=== PATIENT | female | born 1955 | race Caucasian/White ===

== ENCOUNTER 2019-05-29 20:00 | Outpatient (CLI) | payer MEDICARE, BC, SELFPAY | END 2019-05-29 20:01 | disposition home or self-care (01) | LOC: SLEEP 05-30 11:17 | PROVIDERS: Visit Provider Internal Medicine | DX: G47.33 Obstructive sleep apnea (adult) (pediatric) (principal) | CPT/HCPCS: 95810; 95811 ==

== ENCOUNTER 2020-02-21 13:09 | Emergency (ER) | payer MEDICARE, BC, SELFPAY ==
[2020-02-21 13:12] VITALS: BP 188/96; PULSE 85; RESP 20; TEMP 36.4; O2SAT 95; BMI 30.4
[2020-02-21 13:20] VITALS: BP 168/95; PULSE 79; RESP 20; O2SAT 90
--- NOTE | 2020-02-21 13:20 | CT_ITS ---
WS: [id number] CT scan of the head, 02/21/2020 Clinical Data: Altered mental status Comparison: None. DLP: 884.[address] scans at [facility] use at least one of these dose optimization techniques: automat ed exposure control; mA and/or kV adjustment per patient size (includes targeted exams where dose is matched to clinical indication); or iterative reconstruction. Findings: The ventricular system is normal without shift. No recent infarct or hemorrhage is seen. There are no abnormal intracerebral masses. The cerebellum and brainstem are not remarkable. Bony windows of the skull and skull base show no fractures or erosions. The internal auditory canals, sella turcica, intraorbital contents, and paranasal sinuses are unremarkable. The mastoid air cells are not remarkable. CT/CT head wo con* [id number] Impression: Negative CT scan of the head
--- NOTE | 2020-02-21 13:20 | XR_ITS ---
WS: [id number] Portable AP upright chest, 02/21/2020 Clinical Data: Altered mental status Comparison: None. Findings: No nodules, masses or effusions are seen. The heart is normal. The pulmonary vascularity is not increased. No pneumonia or pneumothorax is seen. XR/XR chest 1V portable [id number] Impression: Negative chest.
--- NOTE | 2020-02-21 13:22 | ECG_ITS ---
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 Measurements Intervals [place] Rate: 80 P: 52 MS: 140 QRS: -12 QRSD: 97 T: 26 QT: 368 QTc: 427 Interpretive Statements SINUS RHYTHM No previous ECG available for comparison Electronically Signed On 02-21-2020 18:38:46 CDT by Nolan Conklin M.D. [id number]
--- NOTE | 2020-02-21 13:24 | W.ED.GENADLT ---
HPI - General Adult General: Chief complaint: General Medical Stated complaint: has ms/said something ms going on today Time Seen by Provider: 02/21/20 13:14 Source: patient and family Mode of arrival: wheelchair Limitations: altered mental status History of Present Illness: HPI narrative: Linda is a very nice 64-year-old female who comes in complaining of confusion and difficulty with speech. comes in with her and states that she has history of multiple sclerosis and he and she feels as though she is having a flareup of this. Patient has had similar symptoms to this in the past. The patient was very active yesterday and they feel may have overdone it and believes that may be what has precipitated this. Patient's not had any other ill type symptoms. Associated symptoms: Reports confusion and malaise; Deny chest pain, diaphoresis, dyspnea, headache(s), nausea, rash, palpitations, syncope or vomiting Review of Systems Const: Reports: fatigue and malaise; Denies: fever(s), chills, body aches or diaphoresis Eyes: Denies: change in vision, blurry vision, photophobia, eye discomfort, eye discharge, eye redness or yellow eyes ENMT: Denies: throat pain, odynophagia, hoarseness, swelling of lips/tongue, ear or mastoid pain, ear discharge, change in hearing or nasal discharge Card: Denies: chest pain, palpitations, irregular heart rhythm, edema, lightheadedness, syncope, pre-syncope, dyspnea on exertion or orthopnea Resp: Denies: dyspnea, productive cough, non-productive cough, wheezing, hemoptysis or chest congestion GI: Denies: abdominal pain, nausea, vomiting, hematemesis, coffee ground emesis, heartburn, diarrhea, constipation, GI cramping, hematochezia or melena : Denies: flank pain, dysuria, urinary frequency, urinary urgency or hematuria Musc: Denies: neck pain, back pain, extremity pain, extremity swelling, joint pain, joint swelling, joint redness, joint warmth or joint stiffness Skin/Breast: Denies: rash, pruritus, erythema, skin pain or skin tenderness Neuro: Reports: confusion and behavioral changes; Denies: headache(s), numbness in extremities, weakness in extremities, sensory changes, lack of coordination, difficulty walking, dizziness, vertigo, Slurred speech present or seizure-like activity Mayank/Lymph: Denies: easy bruising, easy bleeding, petechiae, purpura or enlarged lymph nodes All/Imm: Denies: urticaria, throat swelling, tongue swelling, facial swelling or acute wheezing PFSH ED PFSH: Medical History (Updated 02/21/20 @ 16:06 by Robbie Galloway MD) Multiple sclerosis Surgical History (Updated 02/21/20 @ 16:02 by Robbie Galloway MD) H/O: hysterectomy History of bladder surgery Previous back surgery Physical Exam Const: COMMON NORMALS: no acute distress, no limitations and alert GENERAL APPEARANCE: cooperative and lethargic ORIENTATION/CONSCIOUSNESS: Yes oriented to person, Yes oriented to place and Yes lethargic HENMT: COMMON NORMALS: normocephalic, atraumatic, external ears normal, EAC's normal and Normal external nose present HEAD & SCALP: normal to inspection, normocephalic and atraumatic FACE & SINUS: normal facial exam and face symmetric NOSE: Normal external nose present and Normal nares present EXTERNAL EAR: Yes external ears normal EXTERNAL AUDITORY CANAL: EAC's normal MOUTH: Normal oral and palatal mucosa present, lip normal and tongue normal Eye: COMMON NORMALS: Equal, round and reactive pupils present and conjunctivae normal GENERAL EYE: appearance normal, both eyes and all related structures ALIGNMENT: Yes alignment normal PERIORBITAL: periorbital findings normal EYELID: eyelids normal CONJUNCTIVA: Yes conjunctivae normal SCLERA: sclerae normal PUPIL: Yes Equal, round and reactive pupils present Neck/C-Spine: COMMON NORMALS: full ROM, no lymphadenopathy, supple, no meningeal signs and no JVD GENERAL: Yes normal visual inspection and Yes trachea midline Chest: COMMONS NORMALS: normal inspection of the chest and normal palpation of entire chest wall Resp: COMMON NORMALS: normal respiratory effort, No retractions, No use of accessory muscles and clear to auscultation bilaterally EFFORT & INSPECTION: Yes able to speak in complete sentences and Yes symmetric chest movement AUSCULTATION: clear to auscultation bilaterally, no crackles, no rales, no rhonchi and no wheezes Cardio: COMMON NORMALS: no JVD, regular rate, regular rhythm, S1 normal heart sound present and S2 normal heart sound present RATE: regular rate RHYTHM: regular rhythm HEART SOUNDS: S1 normal heart sound present, S2 normal heart sound present, no click, no gallops, no murmurs and no rubs GI: COMMON NORMALS: Soft to palpation and No hepatosplenomegaly present PALPATION: Yes Soft to palpation, No Tenderness to palpation present (GI), No Guarding due to palpation present (GI), No Rigid due to palpation, Yes No hepatosplenomegaly present, No Hernia present, No Palpable mass present and No Pulsatile mass present : COMMON NORMALS: Yes no CVA tenderness BLADDER/KIDNEY EXAM: Yes no CVA tenderness EXTERNAL FEMALE EXAM: No Hernia present Back/Pelvis: COMMON NORMALS: no CVA tenderness, thoracic and lumbar spine normal to inspection, no thoracic nor lumbar tenderness and thoraco-lumbar ROM normal Extremity: COMMON NORMALS: normal to inspection, full ROM, capillary refill normal, no joint enlargement, no clubbing, cyanosis or edema and no calf tenderness Neuro: COMMON NORMALS: CN's II-XII intact bilaterally, moves all extremities, no focal motor deficits and no sensory deficits noted SENSORIUM/ORIENTATION: Yes alert, Yes oriented to person, Yes oriented to place and Yes lethargic MENINGEAL SIGNS: Yes no meningeal signs SPEECH: expressive aphasia Psych: COMMON NORMALS: mental status grossly normal, Normal thought process present, cooperative, normal affect, speech normal and activity/motor behavior normal SPEECH: Yes normal speech THOUGHT PROCESS: Normal thought process present Skin: COMMON NORMALS: no rashes or lesions noted, turgor normal, no jaundice, no petechiae and no mottling GENERAL SKIN EXAM: no rashes or lesions noted and turgor normal Course Vital Signs: Vital signs: Vital Signs Temperature 97.5 F L 02/21/20 13:12 Pulse Rate 63 02/21/20 17:53 Respiratory Rate 17 02/21/20 17:53 Blood Pressure 152/105 02/21/20 17:53 Pulse Oximetry 95 02/21/20 17:53 MDM - General Adult MDM Narrative: Medical decision making narrative: 162 -I have discussed the case with the patient's primary doctor Dr. Padmini Gipson and her neurologist out [facility] Dr. Viveros. Her neurologist feels as though she can be discharged home with a 6-day prednisone taper. I reviewed this with the patient and she agrees that she feels as though she can go home as she is much better here with just IV hydration. Dr. Gipson agrees with this plan and will see the patient on Tuesday for recheck. The patient understands she can return here at any time should her symptoms change or worsen. I was able to speak with the [facility] on-call neurologist Dr. Up and he agreed with this plan and felt this was appropriate. Please see Dr. Galloway's note as he did consult on the patient as initially we thought she would be admitted but ultimately she has decided that she would like to go home. Lab Data: Attestation: I reviewed the patient's lab results. Labs: Lab Results 02/21/20 02/21/20 02/21/20 Range/Units 13:30 13:50 13:50 WBC (4.0-10.0) 10^3/ uL RBC (4.1-5.3) 10^6/u L Hgb (11.5-15.3) g/dL Hct (37.0-47.0) % MCV (81-99) fL MCH (28.0-34.0) pg MCHC (30.0-36.0) g/dL RDW (12.1-15.1) % Plt Count (130-400) 10^3/c mm MPV (7.4-10.4) fL Neut % (Auto) % Lymph % (Auto) % [place] % (Auto) % Eos % (Auto) % Baso % (Auto) % Neut # (Auto) (1.8-7.7) 10^3/u L Lymph # (Auto) (0.8-4.8) 10^3/u L [place] # (Auto) (0.2-0.9) 10^3/u L Eos # (Auto) (0.0-0.8) 10^3/u L Baso # (Auto) (0.0-0.1) 10^3/u L Nucleated RBC % (a uto) % Nucleated RBCs # /100WBC Specimen Type Arterial Sample Site Brachial, left ABG pH 7.42 (7.35-7.45) ABG pCO2 38.2 (35-45) mmHg ABG pO2 78.9 L (80.0-100.0) mmH g ABG HCO3 24.6 (22-26) mmol/L ABG Base Excess 0.2 (-2.0-2.0) mmol/ L Dwayne Test Pos Hematocrit 43.1 (37-47) % O2 Delivery Device Room air FiO2 21.0 % Perinatology Physician ID Cak Sodium (136-145) mmol/L Potassium (3.5-5.1) mmol/L Chloride (98-107) mmol/L Carbon Dioxide (22-29) mmol/L Anion Gap (5-19) BUN (8-23) mg/dL Creatinine (0.5-0.9) mg/dL GFR Calculation (90-130) mL/min Glucose (65-115) mg/dL Calculated Osmolal ity (285-295) mOsm/k g Lactic Acid (0.5-2.2) mmol/L Calcium (8.5-10.5) mg/dL Magnesium (1.7-2.3) mg/dL Total Bilirubin (0.15-1.2) mg/dL AST (0-32) U/L ALT (0-33) U/L Alkaline Phosphata se (35-105) IU/L Creatine Kinase (26-192) U/L Troponin T Baselin e (0-10) ng/L Total Protein (6.6-8.7) g/dL Albumin (3.5-5.2) g/dL Globulin (1.3-4.6) g/dL Urine Color (Yellow) Urine Appearance (CLEAR) Urine pH (5-7) Ur Specific Gravit y (1.005-1.030) Urine Protein (Negative) Urine Glucose (UA) (Normal) Urine Ketones (Negative) Urine Blood (Negative) Urine Nitrate (Negative) Urine Bilirubin (Negative) Urine Urobilinogen (Negative) mg/dL Ur Leukocyte Ambar ase (Negative) Urine Opiates Scre en (Negative) ng/mL Ur Barbiturates Sc reen (Negative) ng/mL Ur Phencyclidine S crn (Negative) ng/mL Ur Amphetamines Sc reen (Negative) ng/mL U Benzodiazepines Scrn (Negative) ng/mL Urine Cocaine Scre en (Negative) ng/mL U Marijuana (THC) Screen (Negative) ng/mL Ethyl Alcohol (0-10) mg/dL Influenza Type A A g Negative (Negative) Influenza Type B A g Negative (Negative) SARS-CoV-2 Ag (Rap id) Negative (Negative) 10/15/20 10/15/20 10/15/20 Range/Units 13:51 13:51 13:51 WBC 5.8 (4.0-10.0) 10^3/ uL RBC 4.57 (4.1-5.3) 10^6/u L Hgb 14.3 (11.5-15.3) g/dL Hct 44.4 (37.0-47.0) % MCV 97.2 (81-99) fL MCH 31.3 (28.0-34.0) pg MCHC 32.2 (30.0-36.0) g/dL RDW 12.4 (12.1-15.1) % Plt Count 249 (130-400) 10^3/c mm MPV 12.3 H (7.4-10.4) fL Neut % (Auto) 70.8 % Lymph % (Auto) 20.7 % [place] % (Auto) 7.2 % Eos % (Auto) 0.3 % Baso % (Auto) 0.5 % Neut # (Auto) 4.11 (1.8-7.7) 10^3/u L Lymph # (Auto) 1.2 (0.8-4.8) 10^3/u L [place] # (Auto) 0.4 (0.2-0.9) 10^3/u L Eos # (Auto) 0.0 (0.0-0.8) 10^3/u L Baso # (Auto) 0.0 (0.0-0.1) 10^3/u L Nucleated RBC % (a uto) 0 % Nucleated RBCs # 0.0 /100WBC Specimen Type Sample Site ABG pH (7.35-7.45) ABG pCO2 (35-45) mmHg ABG pO2 (80.0-100.0) mmH g ABG HCO3 (22-26) mmol/L ABG Base Excess (-2.0-2.0) mmol/ L Dwayne Test Hematocrit (37-47) % O2 Delivery Device FiO2 % Perinatology Physician ID Sodium 137 (136-145) mmol/L Potassium 3.6 (3.5-5.1) mmol/L Chloride 101 (98-107) mmol/L Carbon Dioxide 23 (22-29) mmol/L Anion Gap 16.6 (5-19) BUN 19 (8-23) mg/dL Creatinine 0.6 (0.5-0.9) mg/dL GFR Calculation 100.6 (90-130) mL/min Glucose 109 (65-115) mg/dL Calculated Osmolal ity 287 (285-295) mOsm/k g Lactic Acid 2.0 (0.5-2.2) mmol/L Calcium 9.8 (8.5-10.5) mg/dL Magnesium 2.2 (1.7-2.3) mg/dL Total Bilirubin 0.2 (0.15-1.2) mg/dL AST 27 (0-32) U/L ALT 32 (0-33) U/L Alkaline Phosphata se 102 (35-105) IU/L Creatine Kinase 687 H* (26-192) U/L Troponin T Baselin e (0-10) ng/L Total Protein 6.5 L (6.6-8.7) g/dL Albumin 4.5 (3.5-5.2) g/dL Globulin 2.0 (1.3-4.6) g/dL Urine Color (Yellow) Urine Appearance (CLEAR) Urine pH (5-7) Ur Specific Gravit y (1.005-1.030) Urine Protein (Negative) Urine Glucose (UA) (Normal) Urine Ketones (Negative) Urine Blood (Negative) Urine Nitrate (Negative) Urine Bilirubin (Negative) Urine Urobilinogen (Negative) mg/dL Ur Leukocyte Ambar ase (Negative) Urine Opiates Scre en (Negative) ng/mL Ur Barbiturates Sc reen (Negative) ng/mL Ur Phencyclidine S crn (Negative) ng/mL Ur Amphetamines Sc reen (Negative) ng/mL U Benzodiazepines Scrn (Negative) ng/mL Urine Cocaine Scre en (Negative) ng/mL U Marijuana (THC) Screen (Negative) ng/mL Ethyl Alcohol < 10 (0-10) mg/dL Influenza Type A A g (Negative) Influenza Type B A g (Negative) SARS-CoV-2 Ag (Rap id) (Negative) 02/21/20 02/21/20 02/21/20 Range/Units 13:51 14:25 14:25 WBC (4.0-10.0) 10^3/ uL RBC (4.1-5.3) 10^6/u L Hgb (11.5-15.3) g/dL Hct (37.0-47.0) % MCV (81-99) fL MCH (28.0-34.0) pg MCHC (30.0-36.0) g/dL RDW (12.1-15.1) % Plt Count (130-400) 10^3/c mm MPV (7.4-10.4) fL Neut % (Auto) % Lymph % (Auto) % [place] % (Auto) % Eos % (Auto) % Baso % (Auto) % Neut # (Auto) (1.8-7.7) 10^3/u L Lymph # (Auto) (0.8-4.8) 10^3/u L [place] # (Auto) (0.2-0.9) 10^3/u L Eos # (Auto) (0.0-0.8) 10^3/u L Baso # (Auto) (0.0-0.1) 10^3/u L Nucleated RBC % (a uto) % Nucleated RBCs # /100WBC Specimen Type Sample Site ABG pH (7.35-7.45) ABG pCO2 (35-45) mmHg ABG pO2 (80.0-100.0) mmH g ABG HCO3 (22-26) mmol/L ABG Base Excess (-2.0-2.0) mmol/ L Dwayne Test Hematocrit (37-47) % O2 Delivery Device FiO2 % Perinatology Physician ID Sodium (136-145) mmol/L Potassium (3.5-5.1) mmol/L Chloride (98-107) mmol/L Carbon Dioxide (22-29) mmol/L Anion Gap (5-19) BUN (8-23) mg/dL Creatinine (0.5-0.9) mg/dL GFR Calculation (90-130) mL/min Glucose (65-115) mg/dL Calculated Osmolal ity (285-295) mOsm/k g Lactic Acid (0.5-2.2) mmol/L Calcium (8.5-10.5) mg/dL Magnesium (1.7-2.3) mg/dL Total Bilirubin (0.15-1.2) mg/dL AST (0-32) U/L ALT (0-33) U/L Alkaline Phosphata se (35-105) IU/L Creatine Kinase (26-192) U/L Troponin T Baselin e 6 (0-10) ng/L Total Protein (6.6-8.7) g/dL Albumin (3.5-5.2) g/dL Globulin (1.3-4.6) g/dL Urine Color Yellow (Yellow) Urine Appearance Clear (CLEAR) Urine pH 7.0 (5-7) Ur Specific Gravit y 1.005 (1.005-1.030) Urine Protein Neg (Negative) Urine Glucose (UA) Norm (Normal) Urine Ketones Negative (Negative) Urine Blood Neg (Negative) Urine Nitrate Negative (Negative) Urine Bilirubin Neg (Negative) Urine Urobilinogen Norm (Negative) mg/dL Ur Leukocyte Ambar ase Negative (Negative) Urine Opiates Scre en Negative (Negative) ng/mL Ur Barbiturates Sc reen Positive H (Negative) ng/mL Ur Phencyclidine S crn Negative (Negative) ng/mL Ur Amphetamines Sc reen Negative (Negative) ng/mL U Benzodiazepines Scrn Negative (Negative) ng/mL Urine Cocaine Scre en Negative (Negative) ng/mL U Marijuana (THC) Screen Positive H (Negative) ng/mL Ethyl Alcohol (0-10) mg/dL Influenza Type A A g (Negative) Influenza Type B A g (Negative) SARS-CoV-2 Ag (Rap id) (Negative) Imaging Data^: CXR: Attestation: I personally reviewed and interpreted this imaging study as follows: My impression: No acute cardiopulmonary findings. CT Head: Radiologist's impression: [address] [address] [address] Scan Report Signed Patient: Linda Richardson Unit #: [id number] : 1955 Age/Sex: 64 / F ADM Date: 02/21/20 Loc: ER Room/Bed: Attending Dr: Ordering Provider/Ordering MD: Renea Scanlon DO Date of Service: 02/21/20 Procedure(s): CT head wo con* [id number] Accession Number(s): [id number] Report Number: [id number] WS: [id number] CT scan of the head, 02/21/2020 Clinical Data: Altered mental status Comparison: None. DLP: 884.[address] scans at [facility] use at least one of these dose optimization techniques: automated exposure control; mA and/or kV adjustment per patient size (includes targeted exams where dose is matched to clinical indication); or iterative reconstruction. Findings: The ventricular system is normal without shift. No recent infarct or hemorrhage is seen. There are no abnormal intracerebral masses. The cerebellum and brainstem are not remarkable. Bony windows of the skull and skull base show no fractures or erosions. The internal auditory canals, sella turcica, intraorbital contents, and paranasal sinuses are unremarkable. The mastoid air cells are not remarkable. CT/CT head wo con* [id number] Impression: Negative CT scan of the head Dictated By: Maggi Lizama MD Signed By: Maggi Lizama MD Signed Date/Time: 02/21/20 1411 DD/ 1408 EKG Data^: EKG 1: Attestation: I personally reviewed and interpreted this EKG as follows: EKG interpretation date: 02/21/20 EKG interpretation time: 13:44 Interpretation: Normal sinus rhythm at 80 beats a minute, left axis deviation, left anterior fascicular block, normal intervals, no acute ST or T wave changes. Computer generated interpretation: Chest X-Ray 02/21/20 13:20 Impression: Negative chest. Head CT 02/21/20 13:20 Impression: Negative CT scan of the head Discharge Plan Discharge Patient Disposition: Home Clinical Impression: Multiple sclerosis Condition: Stable Prescriptions: New prednisone 10 mg tablet See Rx Instructions .ROUTE .COMPLEX 6 Days Qty: 24 RF: 0 cefdinir 300 mg capsule 300 mg PO Q12H 10 Days Qty: 20 RF: 0 Protonix 40 mg tablet,delayed release (DR/EC) 40 mg PO DAILY 28 Days RF: 0 No Action primidone 50 mg tablet 100 mg PO BEDTIME RF: 0 dronabinol 5 mg capsule 5 mg PO TID RF: 0 clonazepam 0.5 mg tablet 0.5 mg PO BEDTIME RF: 0 sertraline 100 mg tablet 100 mg PO BEDTIME RF: 0 baclofen 20 mg tablet 10 mg PO TID PRN (Reason: Pain) RF: 0 Synthroid 75 mcg tablet 75 mcg PO DAILY RF: 0 ibuprofen 600 mg tablet 600 mg PO BID PRN (Reason: Pain) RF: 0 estradiol 0.01 % (0.1 mg/gram) cream See Rx Instructions .ROUTE .COMPLEX RF: 0 cyclobenzaprine 5 mg tablet 5 mg PO TID PRN (Reason: Pain) RF: 0 Vimpat 150 mg tablet 150 mg PO BID RF: 0 Linzess 145 mcg capsule 145 mcg PO DAILY PRN (Reason: Constipation) RF: 0 Cerefolin 6-5-50-1 mg Tablet 1 tab PO DAILY RF: 0 Discharge Orders: Discharge Order (Routine); Ordered 02/21/20 Ordered By: Reena Scanlon Referrals: Stephanie Bush MD [Primary Care Provider] - 1-3 days Discharge Diet: Advance as tolerated Discharge Activity: Increase activity as tolerated Patient Instructions: Multiple Sclerosis (GEN) Activity Restrictions/Additional Instructions: Please return to the ER immediately for any of the signs or symptoms listed on your discharge instruction sheets, worsening/changing of your symptoms, you are not getting better as quickly as expected, or for ANY other cause or concerns. We have offered to complete your care here in the hospital which you have elected to go home. If your symptoms worsen or change in any way please return here to the ER immediately for recheck. Discharge Date/Time: 02/21/20 17:42 Coding Level of Care Code ED Die Filer for Rhonda Fwd Exam Comprehensive
[2020-02-21 13:41] LABS: ABG PCO2 38.2 mmHg (35-45); ABG PH Result 7.42 (7.35-7.45); Arterial Blood Gas Hematocrit 43.1 % (37-47); Base Excess ABG 0.2 mmol/L (-2.0-2.0); Blood Gas Allen Test Pos; Blood Gas Operator Identificat CAK; Blood Gas Sample Site Brachial, left; Blood Gas Sample Type Arterial; HCO3 ABG 24.6 mmol/L (22-26); Oxygen Device ROOM AIR; PO2 ABG 78.9 mmHg (80.0-100.0)
[2020-02-21 13:57] VITALS: BP 168/95; PULSE 79; RESP 20; O2SAT 90
[2020-02-21 14:13] LABS: Basophils % 0.5 %; Eosinophils % 0.3 %; Hematocrit 44.4 % (37.0-47.0); Hemoglobin 14.3 g/dL (11.5-15.3); Lymphocytes # 1.2 10^3/uL (0.8-4.8); Lymphocytes % 20.7 %; Mean Corpuscular HGB Conc 32.2 g/dL (30.0-36.0); Mean Corpuscular Hemoglobin 31.3 pg (28.0-34.0); Mean Corpuscular Volume 97.2 fL (81-99); Mean Platelet Volume 12.3 fL (7.4-10.4); Monocytes # 0.4 10^3/uL (0.2-0.9); Monocytes % 7.2 %; Neutrophils # 4.11 10^3/uL (1.8-7.7); Neutrophils % 70.8 %; Nucleated Red Blood Cells % 0 %; Platelet Count 249 10^3/cmm (130-400); Red Blood Count 4.57 10^6/uL (4.1-5.3); Red Cell Distribution Width 12.4 % (12.1-15.1); White Blood Count 5.8 10^3/uL (4.0-10.0)
[2020-02-21 14:26] LABS: Influenza A by IFA Negative (Negative); Influenza B by IFA Negative (Negative); SARS Covid-2 Antigen Negative (Negative)
[2020-02-21 14:29] LABS: Alanine Aminotransferase 32 U/L (0-33); Albumin Level 4.5 g/dL (3.5-5.2); Alkaline Phosphatase 102 IU/L (35-105); Anion Gap 16.6 (5-19); Aspartate Amino Transferase 27 U/L (0-32); Blood Urea Nitrogen 19 mg/dL (8-23); Calcium 9.8 mg/dL (8.5-10.5); Carbon Dioxide 23 mmol/L (22-29); Chloride 101 mmol/L (98-107); Glomerular Filtration Rate 100.6 mL/min (90-130); Glucose 109 mg/dL (65-115); Magnesium 2.2 mg/dL (1.7-2.3); Osmolality Calculated 287 mOsm/kg (285-295); Potassium 3.6 mmol/L (3.5-5.1); Sodium 137 mmol/L (136-145); Total Bilirubin 0.2 mg/dL (0.15-1.2); Total Protein 6.5 g/dL (6.6-8.7)
[2020-02-21 14:30] LABS: Troponin(5th) Baseline 6 ng/L (0-10)
[2020-02-21 14:32] LABS: Add Urine Microscopic? NO
[2020-02-21 14:35] LABS: Bilirubin Urine Neg (Negative); Blood Urine Neg (Negative); Glucose Urine UA Norm (Normal); Ketones Urine Negative (Negative); Leukocyte Esterase Urine Negative (Negative); Nitrate Urine Negative (Negative); Protein Urine Neg (Negative); Specific Gravity, Urine 1.005 (1.005-1.030); Urine Appearance Clear (CLEAR); Urine Color Yellow (Yellow); Urobilinogen Urine Norm (Negative)
[2020-02-21 14:36] LABS: Alcohol Level < 10 mg/dL (0-10)
[2020-02-21 14:37] LABS: Creatine Phosphokinase 687 U/L (26-192)
[2020-02-21 14:43] LABS: Amphetamines Screen Urine Negative (Negative); Barbiturates Screen Urine Positive (Negative); Benzodiazepines Screen Urine Negative (Negative); Cocaine Screen Urine Negative (Negative); Opiate Screen Urine Negative (Negative); PCP Screen Urine Negative (Negative); THC Screen Urine Positive (Negative)
[2020-02-21] MEDS: sodium chloride 0.9% 1,000 ML 999 ML IV (15:22)
--- NOTE | 2020-02-21 15:47 | PM.CONSULT ---
Providers/Reason For Consult Consulting Physican/Specialty*: Dr. Scanlon, ER Reason for Consult*: MS flareup Primary Care Provider: Stephanie Bush MD History of Present Illness History of Present Illness Linda Richardson is a 64 year old female presents to emerge department with confusion and slurred and slow speech. Patient reports that I overdone it . Reports that she was riding a 4 blanchard yesterday for 2 hours and last night and today reports being very tired . Reports that she always gets MS flareup 6 to 8 weeks after surgery. She had bladder pull-up 6 weeks ago. She also reports UTIs cause her to have similar symptoms but that was the reason why she had surgery in the first place. Reports that she noted to have frequent urinations and burning on urination the last several days although her UA appears normal. She denies cough. Denies shortness of breath per se but does report being tired. Reports frequently having some trouble swallowing with MS flares up. Reports that she usually gets steroids. In emergency department patient received IV fluids with significant improvement of patient's speech and mental status. She was noted to have CK and mild rhabdomyolysis could possibly be the reason of patient's generalized weakness/tiredness. Discussed with Dr. Scanlon and recommended further evaluation with MRI. Dr. Scanlon discussed case with neurologist at [facility] and neurologist did not think that MRI would be beneficial and recommended patient to be treated with steroid taper. Dr. Scanlon discussed with patient during my evaluation and patient did not want to be admitted and opted to receive 1 dose Solu-Medrol here and be discharged on prednisone taper. Patient was recommended to drink large amount of fluids. Review of Systems Narrative: Except as mentioned patient denies chest pain or abdominal pain except for her mild discomfort ever since she had surgery. Reports that she scheduled to have post surgery follow-up. She denies any skin lesions or joint pains. She denies any focal neurological complaints. Meds/Allergies Home Medications and Allergies Home Medications Medication Instructions Recorded Confirmed Last Taken Type baclofen 10 mg PO TID PRN 02/21/20 02/21/20 Unknown History clonazepam 0.5 mg PO BEDTIME 02/21/20 02/21/20 02/20/20 History cyclobenzaprine 5 mg PO TID PRN 02/21/20 02/21/20 Unknown History dronabinol 5 mg PO TID 02/21/20 02/21/20 02/21/20 History estradiol See Rx Instructions .ROUTE .COMPLEX 02/21/20 02/21/20 Unknown History ibuprofen 600 mg PO BID PRN 02/21/20 02/21/20 02/21/20 History lacosamide [Vimpat] 150 mg PO BID 02/21/20 02/21/20 02/20/20 History [id number] [Cerefolin] 1 tab PO DAILY 02/21/20 02/21/20 02/20/20 History levothyroxine [Synthroid] 75 mcg PO DAILY 02/21/20 02/21/20 02/20/20 History linaclotide [Linzess] 145 mcg PO DAILY PRN 02/21/20 02/21/20 Unknown History primidone 100 mg PO BEDTIME 02/21/20 02/21/20 02/20/20 History sertraline 100 mg PO BEDTIME 02/21/20 02/21/20 02/20/20 History Allergies Allergy/AdvReac Type Severity Reaction Status Date / Time No Known Allergies Allergy Verified 02/21/20 13:21 PFSH Acute PFSH: Medical History (Updated 02/21/20 @ 16:06 by Robbie Galloway MD) Multiple sclerosis Surgical History (Updated 02/21/20 @ 16:02 by Robbie Galloway MD) H/O: hysterectomy History of bladder surgery Previous back surgery Vitals/I&O/Wt Last Vital Signs Temp 97.5 F L 02/21/20 13:12 Pulse 79 02/21/20 13:57 Resp 20 H 02/21/20 13:57 BP 168/95 02/21/20 13:57 Pulse Ox 90 02/21/20 13:57 Weight last 48 hrs Weight 83.007 kg Physical Exam Const: COMMON NORMALS: no acute distress and patient oriented x3 Resp: COMMON NORMALS: normal respiratory effort and clear to auscultation bilaterally AUSCULTATION: clear to auscultation bilaterally Cardio: COMMON NORMALS: regular rate, regular rhythm and S2 normal heart sound present RATE: regular rate RHYTHM: regular rhythm HEART SOUNDS: S2 normal heart sound present OTHER: No lower extremity edema GI: COMMON NORMALS: Normal to inspection, nondistended, normoactive bowel sounds present, Soft to palpation and non-tender PALPATION: Yes Soft to palpation Neuro: COMMON NORMALS: patient oriented x3 and no focal motor deficits OTHER: Patient has minimally slow and slurred speech. A&P Assessment and plan (1) Slurred speech: Status: Acute (2) Exertional rhabdomyolysis: Mild. Status: Acute Additional A&P Information PLAN: Discussed with Dr. Scanlon and our plan of treatment as follows: Patient will receive 1 dose of Solu-Medrol in ER and will be discharged on prednisone taper. Patient was told to present back should her condition worsen. PPI was recommended for GI protection. We will send urine culture and we will obtain 1 more UA and start patient on Omnicef 300 mg twice daily. Discuss[address]. Bush who will see patient in several days and will follow up on urine culture and decision to continue antibiotic. Patient recommended to drink large amount of fluids. Consult Attestations Medical Necessity Statement: Patient will be dismissed. Time Spent in Patient Care: Greater than 35 minutes Coding Level of Care Code Acute Profile Shaper Operator for Rhonda Caicedo Diagnoses Slurred speech R47.81 Exertional rhabdomyolysis M62.82
[2020-02-21 16:17] VITALS: BP 150/75; PULSE 67; RESP 18; O2SAT 96
[2020-02-21 17:53] VITALS: BP 152/105; PULSE 63; RESP 17; O2SAT 95
== END 2020-02-21 17:42 | disposition home or self-care (01) ==
PROVIDERS: Emergency Provider Emergency Medicine; PCP Internal Medicine
DX: G35 Multiple sclerosis (principal)
CPT/HCPCS: 12345; 70450; 71045; 80053; 80306; 80307; 81003; 82550; 82803; 83605; 83735; 84484; 85025; 87086; 87426; 87804; 93005; 96361; 96374; 96375; 99284; J2930; J7030

== ENCOUNTER 2020-04-11 17:09 | Emergency (ER) | payer MEDICARE, BC, SELFPAY ==
[2020-04-11 17:17] VITALS: BP 165/107; PULSE 72; RESP 18; TEMP 36.4; O2SAT 96; BMI 29.9
[2020-04-11 20:23] VITALS: BP 161/89; PULSE 78; RESP 18; O2SAT 95
[2020-04-11 20:54] LABS: Basophils % 0.1 %; Eosinophils % 0.1 %; Hematocrit 48.9 % (37.0-47.0); Hemoglobin 15.9 g/dL (11.5-15.3); Lymphocytes # 0.5 10^3/uL (0.8-4.8); Lymphocytes % 5.7 %; Mean Corpuscular HGB Conc 32.5 g/dL (30.0-36.0); Mean Corpuscular Hemoglobin 31.6 pg (28.0-34.0); Mean Corpuscular Volume 97.2 fL (81-99); Mean Platelet Volume 12.7 fL (7.4-10.4); Monocytes # 0.3 10^3/uL (0.2-0.9); Monocytes % 2.9 %; Neutrophils # 7.91 10^3/uL (1.8-7.7); Neutrophils % 90.7 %; Nucleated Red Blood Cells % 0 %; Platelet Count 253 10^3/cmm (130-400); Red Blood Count 5.03 10^6/uL (4.1-5.3); Red Cell Distribution Width 12.6 % (12.1-15.1); White Blood Count 8.7 10^3/uL (4.0-10.0)
[2020-04-11 21:00] VITALS: BP 152/84; PULSE 74; RESP 16; O2SAT 93
[2020-04-11 21:15] LABS: SARS Covid-2 Antigen Negative (Negative)
[2020-04-11 21:16] LABS: Influenza A by IFA Negative (Negative); Influenza B by IFA Negative (Negative)
[2020-04-11] MEDS: sodium chloride 0.9% 1,000 ML 999 ML IV (22:11)
[2020-04-11] MEDS: ondansetron 2 mg/ML SDV 2 mL 4 MG IVP (22:12)
[2020-04-11] MEDS: pantoprazole 40 mg SDV IVP (22:12)
[2020-04-11 22:31] LABS: Alanine Aminotransferase 28 U/L (0-33); Albumin Level 4.5 g/dL (3.5-5.2); Alkaline Phosphatase 107 IU/L (35-105); Blood Urea Nitrogen 13 mg/dL (8-23); Carbon Dioxide 21 mmol/L (22-29); Chloride 105 mmol/L (98-107); Glomerular Filtration Rate 124.2 mL/min (90-130); Glucose 118 mg/dL (65-115); Lipase 25 U/L (13-60); Osmolality Calculated 295 mOsm/kg (285-295); Procalcitonin 0.02 ng/mL (0-0.5); Sodium 142 mmol/L (136-145); Total Bilirubin 0.2 mg/dL (0.15-1.2); Total Protein 7.5 g/dL (6.6-8.7)
[2020-04-11 22:37] LABS: Anion Gap 20.1 (5-19); Aspartate Amino Transferase 25 U/L (0-32); Creatine Phosphokinase 500 U/L (26-192); Potassium 4.1 mmol/L (3.5-5.1)
--- NOTE | 2020-04-11 22:37 | CTR_ITS ---
PROCEDURE INFORMATION: Exam: CT Abdomen And Pelvis With Contrast Exam date and time: 04/11/2020 10:40 PM Age: 64 years old Clinical indication: Prior surgery; Surgery type: Gb. Hysterectomy. ; Patient HX: Nausea and vomiting. Pain all over. TECHNIQUE: Imaging protocol: Computed tomography of the abdomen and pelvis with intravenous contrast. Radiation optimization: All CT scans at this facility use at least one of these dose optimization techniques: automated exposure control; mA and/or kV adjustment per patient size (includes targeted exams where dose is matched to clinical indication); or iterative reconstruction. Contrast material: OMNI 300; Contrast volume: 95 ml; Contrast route: INTRAVENOUS (IV); COMPARISON: No relevant prior studies available. RADIATION DOSE METRICS: Total DLP (mGy-cm): 942.4 FINDINGS: Liver: Unremarkable. Gallbladder and bile ducts: Status post cholecystectomy. The common bile duct is dilated to 1.4 cm, which may be a reaction to absent gallbladder. Pancreas: Unremarkable. Spleen: Unremarkable. Adrenal glands: Unremarkable. Kidneys and ureters: The kidneys are unremarkable. No renal stones identified. No hydronephrosis on either side. Stomach and bowel: No bowel obstruction identified. No diverticulitis identified. Appendix: A normal-appearing appendix is seen in the right lower quadrant. Intraperitoneal space: No free intraperitoneal air identified. No free intraperitoneal fluid identified. Vasculature: No abdominal aortic aneurysm. Lymph nodes: Unremarkable. Urinary bladder: Unremarkable as visualized. Reproductive: The uterus is not seen and is presumed surgically absent. Bones/joints: Mild degenerative changes of the lumbar spine. Soft tissues: Unremarkable. CT/CT abdomen pelvis w con* [id number] IMPRESSION: 1. No acute intra-abdominal/intrapelvic process identified. Radiation Dose CTDIVOL = (mGy): DLP = 942.4 (mGy-cm)
[2020-04-11] MEDS: iohexol 300 mg/mL 100 mL Btl IV (22:53)
[2020-04-11 23:05] LABS: Bilirubin Urine Neg (Negative); Blood Urine Neg (Negative); Glucose Urine UA Norm (Normal); Ketones Urine 1+ (Negative); Leukocyte Esterase Urine Negative (Negative); Nitrate Urine Negative (Negative); Protein Urine Neg (Negative); Urine Appearance Hazy (CLEAR); Urine Color Yellow (Yellow); Urobilinogen Urine Norm (Negative); pH Urine 6 (5-7)
[2020-04-11 23:06] LABS: Add Urine Microscopic? YES
[2020-04-11 23:34] LABS: RBC Urine 0-4 /hpf (0-2); Transitional Epi Cells Urine 0-4 /hpf
[2020-04-11 23:35] LABS: Add Urine Culture? No; Bacteria Urine TRACE /hpf; Hyaline Casts Urine 0-4 /lpf; Mucus Urine 2+ /hpf
[2020-04-11] MEDS: baclofen 10 mg Tablet PO (23:48)
--- NOTE | 2020-04-12 00:27 | ED_ITS ---
HPI - Nausea/Vomiting/Diarrhea General: Chief complaint: Nausea/Vomiting/Diarrhea Stated complaint: VOMITING, BODY PAIN Time Seen by Provider: 04/11/20 19:04 Source: patient, family () and old records reviewed Mode of arrival: ambulatory Limitations: no limitations History of Present Illness: HPI Narrative: Patient is a 64 year old female patient with a history of multiple sclerosis who presents with generalized body aches, nausea and vomiting that started yesterday. The patient and her state that this is usual for her multiple sclerosis flareups. The only difference this time according to her is that she does not have altered mental status. He thinks that may be because he gave her lots of fluid to drink. She is here to be evaluated. Her last flare was almost 2 months ago and at the time she declined hospital admission because she was worried about getting infected with COVID-19. So at that time in conjunction with her neurologist she was given a dose of Solu- Medrol in the emergency department and discharged home on prednisone. She states that the prednisone was not very effective but the Solu-Medrol worked. She states that in the past she used to be admitted to the hospital for 3 days getting Solu-Medrol and that is what helps her get over her MS flares MD elicited complaint: nausea and vomiting Pertinent past history: other (MS) Description of vomiting: food contents Associated nausea: Yes Associated abdominal pain: Yes Location of pain: Diffuse Pain consistency: constant Severity: severe Quality: other (burning) Relieving factors: none Associated symtoms: Reports fatigue, headache(s), myalgias, nausea and weakness; Denies altered mental status, anxiety, bloating, change in vision, chest pain, cough, diaphoresis, decreased urine output, dizziness, dysuria, epistaxis, fecal incontinence, fevers/chills, anorexia, numbness, palpitations, rash, short of breath, syncope, tenesmus or tinnitus Review of Systems General: Reports: 10 or more systems reviewed and unremarkable except in HPI and below Const: Reports: fatigue; Denies: diaphoresis Eyes: Denies: change in vision ENMT: Denies: tinnitus or epistaxis Card: Denies: chest pain, palpitations or syncope Resp: Denies: dyspnea, productive cough or non-productive cough GI: Reports: nausea; Denies: bloating or fecal incontinence : Denies: dysuria Musc: Denies: neck pain, back pain or extremity swelling Skin/Breast: Denies: rash, pruritus or erythema Neuro: Reports: headache(s); Denies: dizziness Psych: Denies: anxiety Endo: Denies: polyuria, polydipsia or tired all the time PFSH ED PFSH: Medical History Multiple sclerosis Surgical History H/O: hysterectomy History of bladder surgery Previous back surgery Physical Exam Const: COMMON NORMALS: no acute distress, average body habitus, patient oriented x3, no limitations, healthy appearing, alert and well nourished EXAM LIMITATIONS: no altered mental status HENMT: COMMON NORMALS: normocephalic, atraumatic and moist oral mucous membranes HEAD & SCALP: normocephalic and atraumatic Neck/C-Spine: COMMON NORMALS: no meningeal signs and no JVD Resp: COMMON NORMALS: normal respiratory effort, No retractions, No use of accessory muscles, clear to auscultation bilaterally and percussion normal AUSCULTATION: clear to auscultation bilaterally PERCUSSION: percussion normal Cardio: COMMON NORMALS: no JVD, regular rate, regular rhythm, S1 normal heart sound present, S2 normal heart sound present, No gallops present (Cardio), No clicks present (Cardio), No murmurs present (Cardio), No rub (Cardio) and Peripheral pulses 2+ throughout RATE: regular rate RHYTHM: regular rhythm HEART SOUNDS: S1 normal heart sound present and S2 normal heart sound present PERIPHERAL PULSES: Peripheral pulses 2+ throughout GI: COMMON NORMALS: Normal to inspection, nondistended, normoactive bowel sounds present, Soft to palpation, non-tender, No hepatosplenomegaly present, no masses and no bruits PALPATION: Yes Soft to palpation and Yes No hepatosplenomegaly present Extremity: COMMON NORMALS: normal to inspection, full ROM, capillary refill normal, no calf tenderness and no pedal edema Neuro: COMMON NORMALS: patient oriented x3 SENSORIUM/ORIENTATION: Yes alert MENINGEAL SIGNS: Yes no meningeal signs Skin: COMMON NORMALS: no rashes or lesions noted, no wounds, turgor normal, no jaundice, no petechiae and no mottling GENERAL SKIN EXAM: no rashes or lesions noted and turgor normal Course Reevaluation(s): Reevaluation #1: Discussed her lab and imaging findings with her. Other than elevated CK no acute findings. She is likely having an MS flare like the last time she was seen almost 2 months ago. At that time after conversation with her primary care provider and her neurologist a decision was made to give her intravenous Solu-Medrol in the emergency department and discharge her home on oral prednisone. They attempted to admit her but the patient did not want to be admitted because of Covid concerns. She does not wish to be admitted tonight either. She wants the intr avenous Solu-Medrol and does not want prednisone as she said the prednisone did not work. I will attempt to order an outpatient prescription for intravenous Solu-Medrol for 2 additional days as she states that has been done in the past, however I informed her that I may be unable to order the test and she may need her primary care provider to do this. She voiced understanding and is in agreement with plan Time: 00:27 Vital Signs: Vital signs: Vital Signs Temperature 98.4 F 04/12/20 03:20 Pulse Rate 86 04/12/20 03:20 Respiratory Rate 18 04/12/20 03:20 Blood Pressure 135/83 04/12/20 03:20 Pulse Oximetry 95 04/12/20 03:20 MDM - Nausea/Vomiting/Diarrhea MDM Narrative: Medical decision making narrative: Patient with what appears to be a flareup of her multiple sclerosis. Her complaints today are typical of her usual flareups according to the patient and her . Usual treatment is intravenous steroids and she got a dose here in the emergency department. However she does not want hospital admission no oral steroids. She will return if she feels she needs extra intravenous steroids or her primary care doctor will provide outpatient orders. Medical Records: Attestation: I reviewed the patient's medical records. Lab Data: Attestation: I reviewed the patient's lab results. Labs: Lab Results 04/11/20 04/11/20 04/11/20 Range/Units 12:14 12:14 20:31 WBC 8.7 (4.0-10.0) 10^3/ uL RBC 5.03 (4.1-5.3) 10^6/u L Hgb 15.9 H (11.5-15.3) g/dL Hct 48.9 H (37.0-47.0) % MCV 97.2 (81-99) fL MCH 31.6 (28.0-34.0) pg MCHC 32.5 (30.0-36.0) g/dL RDW 12.6 (12.1-15.1) % Plt Count 253 (130-400) 10^3/c mm MPV 12.7 H (7.4-10.4) fL Neut % (Auto) 90.7 % Lymph % (Auto) 5.7 % [place] % (Auto) 2.9 % Eos % (Auto) 0.1 % Baso % (Auto) 0.1 % Neut # (Auto) 7.91 H (1.8-7.7) 10^3/u L Lymph # (Auto) 0.5 L (0.8-4.8) 10^3/u L [place] # (Auto) 0.3 (0.2-0.9) 10^3/u L Eos # (Auto) 0.0 (0.0-0.8) 10^3/u L Baso # (Auto) 0.0 (0.0-0.1) 10^3/u L Nucleated RBC % (a uto) 0 % Nucleated RBCs # 0.0 /100WBC Sodium (136-145) mmol/L Potassium (3.5-5.1) mmol/L Chloride (98-107) mmol/L Carbon Dioxide (22-29) mmol/L Anion Gap (5-19) BUN (8-23) mg/dL Creatinine (0.5-0.9) mg/dL GFR Calculation (90-130) mL/min Glucose (65-115) mg/dL Calculated Osmolal ity (285-295) mOsm/k g Lactate (0.5-2.2) mmol/L Calcium (8.5-10.5) mg/dL Total Bilirubin (0.15-1.2) mg/dL AST (0-32) U/L ALT (0-33) U/L Alkaline Phosphata se (35-105) IU/L Creatine Kinase (26-192) U/L Total Protein (6.6-8.7) g/dL Albumin (3.5-5.2) g/dL Globulin (1.3-4.6) g/dL Lipase (13-60) U/L Procalcitonin (0-0.5) ng/mL Urine Color (Yellow) Urine Appearance (CLEAR) Urine pH (5-7) Ur Specific Gravit y (1.005-1.030) Urine Protein (Negative) Urine Glucose (UA) (Normal) Urine Ketones (Negative) Urine Blood (Negative) Urine Nitrate (Negative) Urine Bilirubin (Negative) Urine Urobilinogen (Negative) mg/dL Ur Leukocyte Ambar ase (Negative) Urine RBC (0-2) /hpf Urine WBC (0-5) /hpf Ur Squamous Epith Cells (0-5) /hpf Ur Transition Epit h Cell /hpf Ur Renal Epithelia l Cell /hpf Amorphous Sediment Urine Bacteria (NONE) /hpf Hyaline Casts /lpf Urine Mucus /hpf Influenza Type A A g Negative (Negative) Influenza Type B A g Negative (Negative) SARS-CoV-2 Ag (Rap id) Negative (Negative) 04/11/20 04/11/20 04/11/20 Range/Units 20:31 20:31 20:59 WBC (4.0-10.0) 10^3/ uL RBC (4.1-5.3) 10^6/u L Hgb (11.5-15.3) g/dL Hct (37.0-47.0) % MCV (81-99) fL MCH (28.0-34.0) pg MCHC (30.0-36.0) g/dL RDW (12.1-15.1) % Plt Count (130-400) 10^3/c mm MPV (7.4-10.4) fL Neut % (Auto) % Lymph % (Auto) % [place] % (Auto) % Eos % (Auto) % Baso % (Auto) % Neut # (Auto) (1.8-7.7) 10^3/u L Lymph # (Auto) (0.8-4.8) 10^3/u L [place] # (Auto) (0.2-0.9) 10^3/u L Eos # (Auto) (0.0-0.8) 10^3/u L Baso # (Auto) (0.0-0.1) 10^3/u L Nucleated RBC % (a uto) % Nucleated RBCs # /100WBC Sodium 142 (136-145) mmol/L Potassium 4.1 (3.5-5.1) mmol/L Chloride 105 (98-107) mmol/L Carbon Dioxide 21 L (22-29) mmol/L Anion Gap 20.1 H (5-19) BUN 13 (8-23) mg/dL Creatinine 0.5 (0.5-0.9) mg/dL GFR Calculation 124.2 (90-130) mL/min Glucose 118 H (65-115) mg/dL Calculated Osmolal ity 295 (285-295) mOsm/k g Lactate 2.0 (0.5-2.2) mmol/L Calcium 10.0 (8.5-10.5) mg/dL Total Bilirubin 0.2 (0.15-1.2) mg/dL AST 25 (0-32) U/L ALT 28 (0-33) U/L Alkaline Phosphata se 107 H (35-105) IU/L Creatine Kinase 500 H* (26-192) U/L Total Protein 7.5 (6.6-8.7) g/dL Albumin 4.5 (3.5-5.2) g/dL Globulin 3.0 (1.3-4.6) g/dL Lipase 25 (13-60) U/L Procalcitonin 0.02 (0-0.5) ng/mL Urine Color Yellow (Yellow) Urine Appearance Hazy A (CLEAR) Urine pH 6 (5-7) Ur Specific Gravit y 1.020 (1.005-1.030) Urine Protein Neg (Negative) Urine Glucose (UA) Norm (Normal) Urine Ketones 1+ H (Negative) Urine Blood Neg (Negative) Urine Nitrate Negative (Negative) Urine Bilirubin Neg (Negative) Urine Urobilinogen Norm (Negative) mg/dL Ur Leukocyte Ambar ase Negative (Negative) Urine RBC 0-4 H (0-2) /hpf Urine WBC None (0-5) /hpf Ur Squamous Epith Cells 5-10 H (0-5) /hpf Ur Transition Epit h Cell 0-4 /hpf Ur Renal Epithelia l Cell None /hpf Amorphous Sediment Not Reportable Urine Bacteria Trace (NONE) /hpf Hyaline Casts 0-4 H /lpf Urine Mucus 2+ /hpf Influenza Type A A g (Negative) Influenza Type B A g (Negative) SARS-CoV-2 Ag (Rap id) (Negative) Imaging Data^: CT Abd/Pel: Radiologist's impression: [facility] [address] [facility] [place] [address] CT Scan Report Signed Patient: Nessa Richardson #: [id number] : 6Acct#:[id number] Age/Sex: 64 / FADM Date: 04/11/20 Loc: ERRoom/Bed: Attending Dr: Ordering Provider/Ordering MD: Tonya Duncan MD, [facility] [place] Date of Service: 04/11/20 Procedure(s): CT abdomen pelvis w con* [id number] Accession Number(s): [id number] Report Number: [id number] PROCEDURE INFORMATION: Exam: CT Abdomen And Pelvis With Contrast Exam date and time: 04/11/2020 10:40 PM Age: 64 years old Clinical indication: Prior surgery; Surgery type: Gb. Hysterectomy. ; Patient HX: Nausea and vomiting. Pain all over. TECHNIQUE: Imaging protocol: Computed tomography of the abdomen and pelvis with intravenous contrast. Radiation optimization: All CT scans at this facility use at least one of these dose optimization techniques: automated exposure control; mA and/or kV adjustment per patient size (includes targeted exams where dose is matched to clinical indication); or iterative reconstruction. Contrast material: OMNI 300; Contrast volume: 95 ml; Contrast route: INTRAVENOUS (IV); COMPARISON: No relevant prior studies available. RADIATION DOSE METRICS: Total DLP (mGy-cm): 942.4 FINDINGS: Liver: Unremarkable. Gallbladder and bile ducts: Status post cholecystectomy. The common bile duct is dilated to 1.4 cm, which may be a reaction to absent gallbladder. Pancreas: Unremarkable. Spleen: Unremarkable. Adrenal glands: Unremarkable. Kidneys and ureters: The kidneys are unremarkable. No renal stones identified. No hydronephrosis on either side. Stomach and bowel: No bowel obstruction identified. No diverticulitis identified. Appendix: A normal-appearing appendix is seen in the right lower quadrant. Intraperitoneal space: No free intraperitoneal air identified. No free intraperitoneal fluid identified. Vasculature: No abdominal aortic aneurysm. Lymph nodes: Unremarkable. Urinary bladder: Unremarkable as visualized. Reproductive: The uterus is not seen and is presumed surgically absent. Bones/joints: Mild degenerative changes of the lumbar spine. Soft tissues: Unremarkable. CT/CT abdomen pelvis w con* [id number] IMPRESSION: 1. No acute intra-abdominal/intrapelvic process identified. Radiation Dose CTDIVOL = (mGy): DLP = 942.4 (mGy-cm) Dictated By:Seth Gibson MD Signed By:Seth Gibsonigned Date/Time:04/11/202333 DD/ 33 Discharge Plan Discharge Patient Disposition: Home Clinical Impression: Exertional rhabdomyolysis, Multiple sclerosis Condition: Stable Prescriptions: Continued primidone 50 mg tablet 100 mg PO BEDTIME RF: 0 dronabinol 5 mg capsule 5 mg PO TID RF: 0 clonazepam 0.5 mg tablet 0.5 mg PO BEDTIME RF: 0 sertraline 100 mg tablet 100 mg PO BEDTIME RF: 0 baclofen 20 mg tablet 10 mg PO TID PRN (Reason: Pain) RF: 0 Synthroid 75 mcg tablet 75 mcg PO DAILY RF: 0 ibuprofen 600 mg tablet 600 mg PO BID PRN (Reason: Pain) RF: 0 estradiol 0.01 % (0.1 mg/gram) cream See Rx Instructions .ROUTE .COMPLEX RF: 0 cyclobenzaprine 5 mg tablet 5 mg PO TID PRN (Reason: Pain) RF: 0 Vimpat 150 mg tablet 150 mg PO BID RF: 0 Linzess 145 mcg capsule 145 mcg PO DAILY PRN (Reason: Constipation) RF: 0 Cerefolin 6-5-50-1 mg Tablet 1 tab PO DAILY RF: 0 Discharge Orders: Discharge ED (Routine); Ordered 04/12/20 Ordered By: Tonya Duncan Referrals: Stephanie Bush MD [Primary Care Provider] - 1-3 days Discharge Diet: Usual diet Discharge Activity: Increase activity as tolerated Patient Instructions: Multiple Sclerosis (GEN), Rhabdomyolysis (ED) Activity Restrictions/Additional Instructions: Return for any new or worsening symptoms. Follow-up with your primary care provider within 3 days. Unfortunately I am unable to order outpatient medications from the emergency department so if you feel you need more Solu-Medrol please return to the em ergency department or contact the office of Dr. Bush tomorrow and whoever is on-call may be able to place outpatient orders. Coding Level of Care Code ED Pharmacy Billing Adjudicator for Chg Fwd Exam Problem Focused
[2020-04-12 03:20] VITALS: BP 135/83; PULSE 86; RESP 18; TEMP 36.9; O2SAT 95
== END 2020-04-12 01:00 | disposition home or self-care (01) ==
PROVIDERS: Emergency Provider Family Medicine; PCP Internal Medicine
DX: G35 Multiple sclerosis (principal); M62.82 Rhabdomyolysis
CPT/HCPCS: 12345; 74177; 80053; 81001; 82550; 83605; 83690; 84145; 85025; 87426; 87804; 96361; 96374; 96375; 99283; 99284; C9113; J2405; J2930; J7030; Q9967

== ENCOUNTER → 2020-04-15 15:44 | Day surgery (SDC) | payer MEDICARE, BC, SELFPAY ==
[2020-04-15] MEDS: sodium chloride 0.9% 1,000 mL Bolus 999 ML IV (16:25)
[2020-04-15 16:37] VITALS: BMI 29.9
[2020-04-15 16:40] VITALS: BP 118/82; PULSE 76; RESP 18; TEMP 37.1; O2SAT 95
--- NOTE | 2020-04-15 17:41 | SUR.PHASEII ---
Piid discontinued intact. 2x2 dressing applied with coban.
== END ==
PROVIDERS: PCP Internal Medicine; Visit Provider Internal Medicine
DX: G35 Multiple sclerosis (principal)
CPT/HCPCS: 96360; 96374; 96375; J2930; J7030

== ENCOUNTER → 2020-04-17 14:18 | Day surgery (SDC) | payer MEDICARE, BC, SELFPAY ==
[2020-04-17] MEDS: sodium chloride 0.9% 1,000 ML 999 ML IV (14:55)
[2020-04-17 15:06] VITALS: BP 151/79; PULSE 75; RESP 18; TEMP 37.4; O2SAT 94; BMI 29.9
== END ==
PROVIDERS: PCP Internal Medicine; Visit Provider Internal Medicine
DX: G35 Multiple sclerosis (principal)
CPT/HCPCS: 96360; 96374; 96375; J2930; J7030

== ENCOUNTER 2020-06-30 10:32 | Outpatient (CLI) | payer MEDICARE, BC, SELFPAY ==
--- NOTE | 2020-06-30 10:36 | MM_ITS ---
WS: [id number] BILATERAL DIGITAL SCREENING MAMMOGRAPHY WITH CAD CLINICAL INFORMATION: SCREENING HISTORY: Screening mammogram. No current complaints. COMPARISON: February 2019 TECHNIQUE: Bilateral CC and MLO views. FINDINGS: The breasts are composed of heterogeneous fibroglandular density tissue, which can limit the detectio n of small underlying mass lesions. Nodular bilateral breast parenchyma similar to the prior examinat ion. A few intramammary lymph nodes. Punctate and lucent centered calcifications. Prior ultrasound demonstrate multiple simple cysts in the right breast. No suspicious mass, asymmetry, calcificat ions, or architectural distortion. No evidence of malignancy. MM/[place] [id number] IMPRESSION: BI-RADS: 2-Benign FOLLOW UP: 1 Year Follow-up Recommend return to annual screening mammography.
== END 2020-06-30 10:33 | disposition home or self-care (01) ==
LOC: RADSHAW 10:35
PROVIDERS: PCP Internal Medicine; Visit Provider Internal Medicine
DX: Z12.31 Encounter for screening mammogram for malignant neoplasm of breast (principal)
CPT/HCPCS: 77067

== ENCOUNTER → 2020-12-11 12:13 | Outpatient (BNVA) | payer MEDICARE, BC, SELFPAY | PROVIDERS: PCP Internal Medicine; Visit Provider Nurse Practitioner Family | DX: Z20.822 Contact with and (suspected) exposure to COVID-19 (principal); J06.9 Acute upper respiratory infection, unspecified | CPT/HCPCS: 87426 ==

== ENCOUNTER 2021-04-04 16:47 | Emergency (ER) | payer MEDICARE, BC, SELFPAY ==
[2021-04-04 16:58] VITALS: BP 159/92; PULSE 70; RESP 16; TEMP 36.3; O2SAT 97; BMI 29.0
--- NOTE | 2021-04-04 18:27 | ED_ITS ---
Documented by User: Jorge Baca MD 04/09/21 00:26 HPI - Altered Mental Status General: Chief Complaint: Altered Mental Status Stated Complaint: MS COMPLICATIONS/AMS Time Seen by Provider: 04/04/21 18:27 Source: family Limitations: altered mental status History of Present Illness: HPI narrative: Ms. Richardson is a 65-year-old lady with complex past medical history reportedly involving multiple sclerosis who presents to the emergency department due to altered mental status. She is accompanied by her significant other at bedside who provides all history. Reportedly she gets episodes of flare of her multiple sclerosis which typically involve generalized weakness and altered mental status. Today she was found down by the door for a somewhat unclear amount of time. At the time she was complaining of a severe headache which is atypical for her however the other features of confusion are consistent with previous MS flare. They report that patient is typically treated with steroids and improves. History is otherwise limited by patient's mental status. Review of Systems General: Reports: ROS unobtainable due to mental status PFS ED PFSH: Medical History Multiple sclerosis Surgical History H/O: hysterectomy History of bladder surgery Previous back surgery Social History Smoking and tobacco status: never smoked Physical Exam Narrative: EXAM NARRATIVE: GENERAL/CONSTITUTIONAL -ill appearing. Distress due to pain. Altered mental status Eyes - PERRL, no conjunctival injection ENMT - contusion to right anterior temporal region moist mucous membranes NECK - supple. trachea midline CARDIOVASCULAR - regular rate and rhythm. Normal peripheral perfusion RESPIRATORY - clear to auscultation bilaterally. No retractions or accessory muscle use. ABDOMEN/GI - generalized tenderness palpation, Nondistended. No tenderness to percussion or evidence of peritonitis MSK - the patient has tenderness to palpation diffusely including to thoracic and lumbar back and foot. Other tenderness appears to be more muscular though difficult to determine SKIN - Warm, Dry NEURO - alert but unable to assess orientation due to altered mental status. Patient does appear to move all extremities. Course ED course: - Patient was seen and evaluated by me at bedside - Patient placed on cardiac monitors, IV access obtained - Initial evaluation notable for as noted above. Altered mental status with no focal neurologic deficits. Patient has evidence of trauma and generalized tenderness to palpation which is severe and everywhere concerning for acute traumatic cause of symptoms. -Symptom treatment ordered - Labs notable for no leukocytosis. No acute electrolyte abnormality to explain the patient's symptoms. - Imaging notable for negative head CT and neck CT for acute traumatic injury. No acute finding on CT chest abdomen or pelvis. Second metatarsal fracture identified on x-ray. - Upon reevaluation patient had some improvement in mental status. - I had extensive discussion with the patient regarding findings and possible etiologies of symptoms. I did call [facility] for neurology consult however after a number of hours I not heard back as the neurologist was dealing with emergencies and high workload. I discussed possible treatments including risks of steroids specifically up to and including poor wound healing given fracture and future fractures due to osteoporosis. Despite this patient wishes to proceed with steroid infusion which was ordered. This is an extraordinarily complex case as the patient follows primarily with a neurologist in [place] who manages her MS. Early in the patient's emergency department course I did discuss the patient's condition with her primary care provider. The primary care provider has seen documentation that the patient does in fact have MS and we discussed at length the challenging complexity of this case. Primarily the challenge of current presentation is lack of imaging and outside clinic notes as well as a atypical presentation for MS or MS flare. - Neurology with [facility] did call back and I discussed the case extensively. This being a MS flare would be very atypical and the neurologist brought up possibility of pseudoflare. Unfortunately there are number of mimics including life-threatening conditions such as PML that require emergent MRI with and without contrast to rule out which was recommended regardless of patient's atypical presentation. Additional complexity added to the case given the patient's reported use of disease modifying therapies however these are not reflected precisely in medication list. - MRI ordered based on this recommendation. - Patient care handed off to overnight ED physician Dr. Ramos pending MRI results. - Patient was placed in splint and instructed on nonweightbearing. Vital Signs: Vital signs: Vital Signs Temperature 97.4 F L 04/04/21 16:58 Pulse Rate 66 04/05/21 01:20 Respiratory Rate 18 04/05/21 01:20 Blood Pressure 140/95 04/05/21 01:20 Pulse Oximetry 93 04/05/21 01:20 MDM - Altered Mental Status Medical Records: Attestation: I reviewed the patient's medical records. Lab Data: Attestation: I reviewed the patient's lab results. Labs: Lab Results 04/04/21 04/04/21 19:51 19:51 WBC 6.3 10^3/uL 10^3/ uL (4.0-10.0) RBC 4.36 10^6/uL 10^6 /uL (4.1-5.3) Hgb 13.9 g/dL g/dL (11.5-15.3) Hct 43.7 % % (37.0-47.0) MCV 100.2 fl H fl (81-99) MCH 31.9 pg pg (28.0-34.0) MCHC 31.8 g/dL g/dL (30.0-36.0) RDW 12.8 % % (12.1-15.1) Plt Count 216 10^3/cmm 10^3 /cmm (130-400) MPV 12.6 fL H fL (7.4-10.4) Neut % (Auto) 67.6 % % Lymph % (Auto) 18.2 % % [place] % (Auto) 11.3 % % Eos % (Auto) 1.9 % % Baso % (Auto) 0.5 % % Neut # (Auto) 4.24 10^3/uL 10^3 /uL (1.8-7.7) Lymph # (Auto) 1.1 10^3/uL 10^3/ uL (0.8-4.8) [place] # (Auto) 0.7 10^3/uL 10^3/ uL (0.2-0.9) Eos # (Auto) 0.1 10^3/uL 10^3/ uL (0.0-0.8) Baso # (Auto) 0.0 10^3/uL 10^3/ uL (0.0-0.1) Nucleated RBC % (a uto) 0 % % Nucleated RBCs # 0.0 /100WBC /100W BC Sodium 140 mmol/L mmol/L (136-145) Potassium 4.1 mmol/L mmol/L (3.5-5.1) Chloride 107 mmol/L mmol/L (98-107) Carbon Dioxide 23 mmol/L mmol/L (22-29) Anion Gap 14.1 (5-19) BUN 14 mg/dL mg/dL (8-23) Creatinine 0.7 mg/dL mg/dL (0.5-0.9) GFR Calculation 84.0 mL/min L mL/ min (90-130) Glucose 83 mg/dL mg/dL (65-115) Calculated Osmolal ity 290 mOsm/kg mOsm/ kg (285-295) Calcium 9.2 mg/dL mg/dL (8.5-10.5) Total Bilirubin 0.2 mg/dL mg/dL (0.15-1.2) AST 19 U/L U/L (0-32) ALT 27 U/L U/L (0-33) Alkaline Phosphata se 71 IU/L IU/L (35-105) Total Protein 6.4 g/dL L g/dL (6.6-8.7) Albumin 4.0 g/dL g/dL (3.5-5.2) Globulin 2.4 g/dL g/dL (1.3-4.6) Critical Care Time Critical Care Time: Critical Care Time: Yes Total Critical Care Time: 50 Attestation: Due to a high probability of clinically significant, possibly life threatening deterioration, the patient required my highest level of attention and preparedness to intervene emergently and I personally spent this critical care time directly and personally managing the patient. This critical care time included obtaining a history; examining the patient; pulse oximetry; ordering and review of laboratory and imaging studies; arranging urgent treatment with development of a management plan; evaluation of patient's response to treatment; frequent reassessment; and, discussions with other providers as applicable. It was exclusive of separately billable procedures. Discharge Plan Discharge Patient Disposition: Home Clinical Impression: Multiple sclerosis Metatarsal fracture Qualifiers: Encounter type: initial encounter Metatarsal bone: second Fracture type: closed Fracture alignment: nondisplaced Laterality: right Qualified Code(s): S92.324A - Nondisplaced fracture of second metatarsal bone, right foot, initial encounter for closed fracture Condition: Stable Prescriptions: No Action (DME) post op shoe See Rx Instructions .Route .MEDSUPPLY Qty: 1 RF: 0 primidone 50 mg tablet 100 mg PO BEDTIME RF: 0 dronabinol 5 mg capsule 5 mg PO TID RF: 0 clonazepam 0.5 mg tablet 0.5 mg PO BEDTIME RF: 0 sertraline 100 mg tablet 100 mg PO BEDTIME RF: 0 baclofen 20 mg tablet 10 mg PO TID PRN (Reason: Pain) RF: 0 levothyroxine [Synthroid] 75 mcg tablet 75 mcg PO DAILY RF: 0 ibuprofen 600 mg tablet 600 mg PO BID PRN (Reason: Pain) RF: 0 estradiol 0.01 % (0.1 mg/gram) cream See Rx Instructions .ROUTE .COMPLEX RF: 0 cyclobenzaprine 5 mg tablet 5 mg PO TID PRN (Reason: Pain) RF: 0 Vimpat 150 mg tablet 150 mg PO BID RF: 0 Linzess 145 mcg capsule 145 mcg PO DAILY PRN (Reason: Constipation) RF: 0 Cerefolin 6-5-50-1 mg Tablet 1 tab PO DAILY RF: 0 Discharge Orders: Discharge ED (Routine); Ordered 04/05/21 Ordered By: Shawn Ramos Referrals: Stephanie Bush MD [Primary Care Provider] - 1-3 days Anoop Rodgers MD [Physician] - 4-7 days Activity Restrictions/Additional Instructions: Follow-up with your primary doctor and your neurologist on Tuesday, at least by phone. Follow-up with orthopedics next week regarding your foot fracture. The clinic number is listed to call on Tuesday. Do not weight-bear until seen and cleared. Return for any worsening symptoms such as mental status change, worsening weakness, blindness, other concerns. Coding Level of Care Code ED Medical Imaging Director for Chg Fwd Documented by User: Shawn Ramos DO 04/05/21 01:45 HPI - Altered Mental Status General: Chief Complaint: Altered Mental Status Stated Complaint: MS COMPLICATIONS/AMS Time Seen by Provider: 04/04/21 18:27 PFSH ED PFSH: Medical History Multiple sclerosis Surgical History H/O: hysterectomy History of bladder surgery Previous back surgery Social History Smoking and tobacco status: never smoked Course Vital Signs: Vital signs: Vital Signs Temperature 97.4 F L 04/04/21 16:58 Pulse Rate 66 04/05/21 01:20 Respiratory Rate 18 04/05/21 01:20 Blood Pressure 140/95 04/05/21 01:20 Pulse Oximetry 93 04/05/21 01:20 MDM - Altered Mental Status MDM Narrative: Medical decision making narrative: 65-year-old female evidently with a history of MS checked out to me by the previous physician at shift change. This lady has several complaints, which she associates with her typical flaring of her MS. Evidently, she sees neurology in [place]. She has a standard treatment regimen when this happens of a 500 mg bolus of Solu-Medrol. She does not appear to be on any disease modifying drug, immune modulating therapy, etc. chronically. MRI with and without contrast of the brain shows minor scattered nonspecific white matter lesions that do not enhance. These are likely likely related to her diagnosis of MS, but do not appear hot. She will be discharged to follow-up with her primary care provider, her neurologist at least by phone next week, and orthopedics regarding her foot fracture. Lab Data: Labs: Lab Results 04/04/21 04/04/21 19:51 19:51 WBC 6.3 10^3/uL 10^3/ uL (4.0-10.0) RBC 4.36 10^6/uL 10^6 /uL (4.1-5.3) Hgb 13.9 g/dL g/dL (11.5-15.3) Hct 43.7 % % (37.0-47.0) MCV 100.2 fl H fl (81-99) MCH 31.9 pg pg (28.0-34.0) MCHC 31.8 g/dL g/dL (30.0-36.0) RDW 12.8 % % (12.1-15.1) Plt Count 216 10^3/cmm 10^3 /cmm (130-400) MPV 12.6 fL H fL (7.4-10.4) Neut % (Auto) 67.6 % % Lymph % (Auto) 18.2 % % [place] % (Auto) 11.3 % % Eos % (Auto) 1.9 % % Baso % (Auto) 0.5 % % Neut # (Auto) 4.24 10^3/uL 10^3 /uL (1.8-7.7) Lymph # (Auto) 1.1 10^3/uL 10^3/ uL (0.8-4.8) [place] # (Auto) 0.7 10^3/uL 10^3/ uL (0.2-0.9) Eos # (Auto) 0.1 10^3/uL 10^3/ uL (0.0-0.8) Baso # (Auto) 0.0 10^3/uL 10^3/ uL (0.0-0.1) Nucleated RBC % (a uto) 0 % % Nucleated RBCs # 0.0 /100WBC /100W BC Sodium 140 mmol/L mmol/L (136-145) Potassium 4.1 mmol/L mmol/L (3.5-5.1) Chloride 107 mmol/L mmol/L (98-107) Carbon Dioxide 23 mmol/L mmol/L (22-29) Anion Gap 14.1 (5-19) BUN 14 mg/dL mg/dL (8-23) Creatinine 0.7 mg/dL mg/dL (0.5-0.9) GFR Calculation 84.0 mL/min L mL/ min (90-130) Glucose 83 mg/dL mg/dL (65-115) Calculated Osmolal ity 290 mOsm/kg mOsm/ kg (285-295) Calcium 9.2 mg/dL mg/dL (8.5-10.5) Total Bilirubin 0.2 mg/dL mg/dL (0.15-1.2) AST 19 U/L U/L (0-32) ALT 27 U/L U/L (0-33) Alkaline Phosphata se 71 IU/L IU/L (35-105) Total Protein 6.4 g/dL L g/dL (6.6-8.7) Albumin 4.0 g/dL g/dL (3.5-5.2) Globulin 2.4 g/dL g/dL (1.3-4.6) Discharge Plan Discharge Patient Disposition: Home Clinical Impression: Multiple sclerosis Metatarsal fracture Qualifiers: Encounter type: initial encounter Metatarsal bone: second Fracture type: closed Fracture alignment: nondisplaced Laterality: right Qualified Code(s): S92.324A - Nondisplaced fracture of second metatarsal bone, right foot, initial encounter for closed fracture Condition: Stable Prescriptions: No Action (DME) post op shoe See Rx Instructions .Route .MEDSUPPLY Qty: 1 RF: 0 primidone 50 mg tablet 100 mg PO BEDTIME RF: 0 dronabinol 5 mg capsule 5 mg PO TID RF: 0 clonazepam 0.5 mg tablet 0.5 mg PO BEDTIME RF: 0 sertraline 100 mg tablet 100 mg PO BEDTIME RF: 0 baclofen 20 mg tablet 10 mg PO TID PRN (Reason: Pain) RF: 0 levothyroxine [Synthroid] 75 mcg tablet 75 mcg PO DAILY RF: 0 ibuprofen 600 mg tablet 600 mg PO BID PRN (Reason: Pain) RF: 0 estradiol 0.01 % (0.1 mg/gram) cream See Rx Instructions .ROUTE .COMPLEX RF: 0 cyclobenzaprine 5 mg tablet 5 mg PO TID PRN (Reason: Pain) RF: 0 Vimpat 150 mg tablet 150 mg PO BID RF: 0 Linzess 145 mcg capsule 145 mcg PO DAILY PRN (Reason: Constipation) RF: 0 Cerefolin 6-5-50-1 mg Tablet 1 tab PO DAILY RF: 0 Discharge Orders: Discharge ED (Routine); Ordered 04/05/21 Ordered By: Shawn Ramos Referrals: Stephanie Bush MD [Primary Care Provider] - 1-3 days Anoop Rodgers MD [Physician] - 4-7 days Activity Restrictions/Additional Instructions: Follow-up with your primary doctor and your neurologist on Tuesday, at least by phone. Follow-up with orthopedics next week regarding your foot fracture. The clinic number is listed to call on Tuesday. Do not weight-bear until seen and cleared. Return for any worsening symptoms such as mental status change, worsening weakness, blindness, other concerns. Coding Level of Care Code ED Medical Imaging Director for Rhonda Caicedo
--- NOTE | 2021-04-04 18:52 | CTR_ITS ---
PROCEDURE INFORMATION: Exam: CT Head Without Contrast Exam date and time: 04/04/2021 6:52 PM Age: 65 years old Clinical indication: Injury or trauma; Blunt trauma (contusions or hematomas); Consciousness not specified; Patient HX: Unwitnessed fall HX of ms; Additional info: Fall, AMS TECHNIQUE: Imaging protocol: Computed tomography of the head without contrast. Radiation optimization: All CT scans at this facility use at least one of these dose optimization techniques: automated exposure control; mA and/or kV adjustment per patient size (includes targeted exams where dose is matched to clinical indication); or iterative reconstruction. COMPARISON: CT head wo con* [id number] 02/21/2020 1:52 PM RADIATION DOSE METRICS: Total DLP (mGy-cm): 836.04 FINDINGS: Brain: Moderate diffuse cortical volume loss. Mild hypodensities in supratentorial periventricular and subcortical white matter, consistent with microangiopathy. No intracranial hemorrhage. Cerebral ventricles: No ventriculomegaly. Paranasal sinuses: Visualized sinuses are unremarkable. No fluid levels. Mastoid air cells: Postsurgical changes of the left mastoid. Right mastoid is normal. Vasculature: No hyperdense artery. Bones/joints: Unremarkable. No acute fracture. Soft tissues: Unremarkable. CT/CT head wo con* [id number] IMPRESSION: 1. No acute intracranial abnormality. Radiation Dose CTDIVOL = (mGy): DLP = 836.04 (mGy-cm)
--- NOTE | 2021-04-04 18:52 | CTR_ITS ---
PROCEDURE INFORMATION: Exam: CT Chest With Contrast; Diagnostic Exam date and time: 04/04/2021 6:52 PM Age: 65 years old Clinical indication: Injury or trauma; Generalized; Blunt trauma (contusions or hematomas); Prior surgery; Surgery date: 6+ months; Surgery type: Hyst, bladder, back; Patient HX: Unwitnessed fall HX of ms; Additional info: Fall, AMS TECHNIQUE: Imaging protocol: Diagnostic computed tomography of the chest with contrast. Radiation optimization: All CT scans at this facility use at least one of these dose optimization techniques: automated exposure control; mA and/or kV adjustment per patient size (includes targeted exams where dose is matched to clinical indication); or iterative reconstruction. Contrast material: OMNI 300; Contrast volume: 95 ml; Contrast route: INTRAVENOUS (IV); COMPARISON: CT abdomen pelvis w con* [id number] 04/11/2020 10:43 PM RADIATION DOSE METRICS: Total DLP (mGy-cm): 1314.51 FINDINGS: Lungs: Unremarkable. No consolidation. No masses. Pleural spaces: Unremarkable. No pneumothorax. No pleural effusion. Heart: Unremarkable. No cardiomegaly. No pericardial effusion. Aorta: Unremarkable. No aortic aneurysm. Lymph nodes: Unremarkable. No enlarged lymph nodes. Bones/joints: Unremarkable. No acute fracture. Soft tissues: Unremarkable. IMPRESSION: No acute findings. PROCEDURE INFORMATION: Exam: CT Abdomen And Pelvis With Contrast Exam date and time: 04/04/2021 6:52 PM Age: 65 years old Clinical indication: Injury or trauma; Generalized; Blunt trauma (contusions or hematomas); Prior surgery; Surgery date: 6+ months; Surgery type: Hyst, bladder, back; Patient HX: Unwitnessed fall HX of ms; Additional info: Fall, AMS TECHNIQUE: Imaging protocol: Computed tomography of the abdomen and pelvis with contrast. Radiation optimization: All CT scans at this facility use at least one of these dose optimization techniques: automated exposure control; mA and/or kV adjustment per patient size (includes targeted exams where dose is matched to clinical indication); or iterative reconstruction. Contrast material: OMNI 300; Contrast volume: 95 ml; Contrast route: INTRAVENOUS (IV); COMPARISON: CT abdomen pelvis w con* [id number] 04/11/2020 10:43 PM RADIATION DOSE METRICS: Total DLP (mGy-cm): 1314.51 FINDINGS: Liver: Normal. No mass. Gallbladder and bile ducts: Cholecystectomy. Nondilated biliary system. Pancreas: Normal. No ductal dilation. Spleen: Normal. No splenomegaly. Adrenal glands: Normal. No mass. Kidneys and ureters: Normal. No hydronephrosis. Stomach and bowel: Unremarkable. No obstruction. No mucosal thickening. Appendix: No evidence of appendicitis. Intraperitoneal space: Unremarkable. No free air. No significant fluid collection. Vasculature: Unremarkable. No abdominal aortic aneurysm. Lymph nodes: Unremarkable. No enlarged lymph nodes. Urinary bladder: Unremarkable as visualized. Reproductive: Hysterectomy. Bones/joints: Unremarkable. No acute fracture. The lumbar spine demonstrates moderate discogenic and apophyseal joint degenerative changes at multiple levels. Soft tissues: Unremarkable. Other findings: Surgical change in the pelvis. This may be related to prior hernia repair or bladder suspension type surgery. CT/CT chest abd pel w con* IMPRESSION: Negative for acute abdominopelvic injury. Radiation Dose CTDIVOL = (mGy): DLP = 1314.51~1314.51 (mGy-cm)
--- NOTE | 2021-04-04 18:52 | CTR_ITS ---
PROCEDURE INFORMATION: Exam: CT Cervical Spine Without Contrast Exam date and time: 04/04/2021 6:52 PM Age: 65 years old Clinical indication: Injury or trauma; Blunt trauma; Patient HX: Unwitnessed fall HX of ms; Additional info: Fall, AMS TECHNIQUE: Imaging protocol: Computed tomography images of the cervical spine without contrast. Radiation optimization: All CT scans at this facility use at least one of these dose optimization techniques: automated exposure control; mA and/or kV adjustment per patient size (includes targeted exams where dose is matched to clinical indication); or iterative reconstruction. COMPARISON: CT head wo con* [id number] 04/04/2021 8:24 PM RADIATION DOSE METRICS: Total DLP (mGy-cm): 443.75 FINDINGS: Bones/joints: Straightening of the lordosis. The vertebral body stature is maintained. No fracture or subluxation. The facets are intact with hypertrophic degenerative changes. Discs/Spinal canal/Neural foramina: Disc space narrowing with endplate and uncovertebral spurring at C3-C4. Disc space narrowing with degenerative endplate changes at C6-C7 with mild central canal stenosis. Severe bilateral bony foraminal stenosis at C3-C4. Left bony foraminal stenosis at C6-C7. Lungs: Lung apices are normal. Soft tissues: Unremarkable. CT/CT cervical spin wo con* [id number] IMPRESSION: 1. No fracture or acute finding. 2. Multilevel degenerative changes. Radiation Dose CTDIVOL = (mGy): DLP = 443.75 (mGy-cm)
--- NOTE | 2021-04-04 18:52 | XRR_ITS ---
PROCEDURE INFORMATION: Exam: XR Right Foot Exam date and time: 04/04/2021 6:52 PM Age: 65 years old Clinical indication: Pain; Foot; Right TECHNIQUE: Imaging protocol: XR Right foot. Views: 3 or more views. COMPARISON: No relevant prior studies available. FINDINGS: Bones/joints: Comminuted mildly displaced fracture through the base of the right 2nd metatarsal. No definite evidence for Lisfranc ligament injury. The other bones appear intact. Small calcaneus spur. Mild degenerative changes of the 1st metatarsal phalangeal joint. Soft tissues: Normal. XR/XR foot RT min 3V* [id number] IMPRESSION: 1. Comminuted fracture in the base of the right 2nd metatarsal. Radiation Dose CTDIVOL = (mGy): DLP = (mGy-cm)
[2021-04-04] MEDS: fentaNYL 50 mcg/mL INJ 2mL IVP (19:46)
[2021-04-04 20:13] LABS: Basophils % 0.5 %; Eosinophils # 0.1 10^3/uL (0.0-0.8); Eosinophils % 1.9 %; Hematocrit 43.7 % (37.0-47.0); Hemoglobin 13.9 g/dL (11.5-15.3); Lymphocytes # 1.1 10^3/uL (0.8-4.8); Lymphocytes % 18.2 %; Mean Corpuscular HGB Conc 31.8 g/dL (30.0-36.0); Mean Corpuscular Hemoglobin 31.9 pg (28.0-34.0); Mean Corpuscular Volume 100.2 fl (81-99); Mean Platelet Volume 12.6 fL (7.4-10.4); Monocytes # 0.7 10^3/uL (0.2-0.9); Monocytes % 11.3 %; Neutrophils # 4.24 10^3/uL (1.8-7.7); Neutrophils % 67.6 %; Nucleated Red Blood Cells % 0 %; Platelet Count 216 10^3/cmm (130-400); Red Blood Count 4.36 10^6/uL (4.1-5.3); Red Cell Distribution Width 12.8 % (12.1-15.1); White Blood Count 6.3 10^3/uL (4.0-10.0)
[2021-04-04 20:18] LABS: Alanine Aminotransferase 27 U/L (0-33); Alkaline Phosphatase 71 IU/L (35-105); Anion Gap 14.1 (5-19); Aspartate Amino Transferase 19 U/L (0-32); Blood Urea Nitrogen 14 mg/dL (8-23); Calcium 9.2 mg/dL (8.5-10.5); Carbon Dioxide 23 mmol/L (22-29); Chloride 107 mmol/L (98-107); Creatinine Clr Calc Pharmacy 78.0561; Globulin 2.4 g/dL (1.3-4.6); Glucose 83 mg/dL (65-115); Osmolality Calculated 290 mOsm/kg (285-295); Potassium 4.1 mmol/L (3.5-5.1); Sodium 140 mmol/L (136-145); Total Bilirubin 0.2 mg/dL (0.15-1.2); Total Protein 6.4 g/dL (6.6-8.7)
[2021-04-04] MEDS: iohexol 300 mg/mL 100 mL Btl IV (20:45)
[2021-04-04 22:07] VITALS: RESP 16
[2021-04-04] MEDS: morphine 4 mg/mL SDV 1 mL IVP (22:07)
--- NOTE | 2021-04-04 22:20 | MRR_ITS ---
PROCEDURE INFORMATION: Exam: MR Head Without Contrast Exam date and time: 04/04/2021 10:20 PM Age: 65 years old Clinical indication: Other: Ms flair; Additional info: Reported ms flair, AMS, headache, atypical symptoms TECHNIQUE: Imaging protocol: MR of the head without contrast. COMPARISON: CT head wo con* [id number] 04/04/2021 8:24 PM FINDINGS: Brain: There is moderate cerebral atrophy. Several small scattered nonspecific T2 hyperintense signal changes within both subcortical and periventricular white matter regions. Nonspecific pattern and distribution. No space-occupying intracranial mass. Jacinto matter and white matter interfaces are preserved. No intracranial hemorrhage. No restricted diffusion in the brain parenchyma. No midline shift of the brain. No abnormal intracranial enhancement. The small focal white matter changes do not enhance. Intracranial vascular structures grossly unremarkable. Cerebral ventricles: Normal. No ventriculomegaly. Bones/joints: Unremarkable. Paranasal sinuses: Normal as visualized. No acute sinusitis. Mastoid air cells: Normal as visualized. No mastoid effusion. Orbital cavity: Symmetric orbits. No abnormal optic nerve enhancement apparent. Soft tissues: Unremarkable. MR/MR head wo/w con [id number] IMPRESSION: 1. Minor scattered nonspecific white matter lesions. Sequela of vasculitis, chronic microangiopathic disease, or demyelinating disease in the differential. Radiation Dose CTDIVOL = (mGy): DLP = (mGy-cm)
[2021-04-05 01:01] VITALS: BP 138/84; PULSE 86; RESP 18; O2SAT 98
[2021-04-05 01:20] VITALS: BP 140/95; PULSE 66; RESP 18; O2SAT 93
== END 2021-04-05 01:21 | disposition home or self-care (01) ==
PROVIDERS: Emergency Medicine; Emergency Provider Emergency Medicine; PCP Internal Medicine
DX: G35 Multiple sclerosis (principal); S92.324A Nondisplaced fracture of second metatarsal bone, right foot, initial encounter for closed fracture; X58.XXXA Exposure to other specified factors, initial encounter
CPT/HCPCS: 36415; 70450; 70553; 71260; 72125; 73630; 74177; 80053; 85025; 96365; 96375; 99284; A9579; J2270; J2930; J3010; J7050; Q9967

== ENCOUNTER 2021-04-24 12:40 | Inpatient (IN) | payer MEDICARE, BC, SELFPAY ==
[2021-04-24] VITALS (7 sets, daily range): BP systolic 115–165; BP diastolic 63–104; PULSE 63–71; RESP 14–20; TEMP 36.4; O2SAT 90–95; BMI 27.3
--- NOTE | 2021-04-24 12:48 | CT_ITS ---
WS: [id number] CT HEAD NONCONTRAST HISTORY: ams TECHNIQUE: Contiguous axial imaging performed through the brain in 2.5 mm imaging. Bone and soft tiss ue windows. Sagittal and coronal reformats reviewed. All CT scans at [facility] use at least one of these dose optimization techniques: automated exposure control; mA and/or kV adjustment per pa tient size (includes targeted exams where dose is matched to clinical indication); or iterative recon struction. DLP: 1870.55 mGy.cm COMPARISON: 04/04/2021 No acute intracranial hemorrhage, midline shift or mass effect. No atrophy or prior infarcts or herniation. Ventricles: Normal size with no hydrocephalus. Paranasal sinuses: As visualized are clear. Mastoid air cells: Well pneumatized. Calvarium and scalp: Skull is intact with no soft tissue edema or swelling. CT/CT head wo con* [id number] IMPRESSION: 1. Negative head CT. No acute intracranial hemorrhage or edema. 2. Stable since 04/04/2021.
--- NOTE | 2021-04-24 12:48 | XR_ITS ---
WS: [id number] XR chest 1V portable [id number] REASON FOR EXAM: ams FINDINGS: Moderate tortuosity and ectasia of the thoracic aorta. Heart size within normal limits. Calcified granulomatous disease in both hemithoraces. No active pulmonary parenchymal or pleural disease identified. Mild changes of degenerative spondylosis in the mid and lower thoracic spine. XR/XR chest 1V portable [id number] IMPRESSION: No acute chest abnormality.
--- NOTE | 2021-04-24 13:06 | ED_ITS ---
HPI - General Adult General: Chief complaint: Altered Mental Status Stated complaint: AMS Time Seen by Provider: 04/24/21 12:41 History of Present Illness: HPI narrative: CC: AMS HPI: [65]yo patient w/ hx of MS ALIYAH for altered mental status. Per , patient was normal this morning up until when she was taking a shower and collapsed in the bathroom. According to the , patient has become altered and unresponsive since then. EMS was alerted. En route, vitals and glucose wnl. ECG did not show any signs of ischemic. In the ED, the patient unresponsive with some reflexes intact. Per rescue, patient has had 2 episodes of vomiting. 40s patient's , patient has had similar presentation altered mental status and every time responding to 1 g of Solu-Medrol. Onset: 1 hr ago Duration: ongoing, unclear duration Location: home Severity: severe Review of Systems Narrative: REVIEW OF SYSTEMS unable to obtain due to current cognitive status PFS ED PFSH: Medical History (Updated 04/24/21 @ 16:54 by Saeid Billingsley MD) Exertional rhabdomyolysis Multiple sclerosis Slurred speech Surgical History H/O: hysterectomy History of bladder surgery Previous back surgery Social History Smoking and tobacco status: never smoked Physical Exam Narrative: EXAM NARRATIVE: Head: Atraumatic Eyes: PERRL, conjunctiva without injection ENT: Mucous membrane moist NECK: Supple without lymphadenopathy LUNGS: LCTAB CV: RRR ABDOMEN: Soft, no focal TTP. NO guarding rebound, guarding, rigidity. No CVA tenderness to percussion. Neg Christine/Neg McBurney's point tenderness, no suprabupic tenderness to palpation. EXTREMITY: Normal ROM SKIN: No rash or erythema, no signs of track pat, no visible patches, no notic eable cellulitis NEURO: No moving all extremities, eyes open, occularcephalic reflex intact PSYCH: Somnolent unable to fully assess at this time Procedures Lumbar Puncture Time Out Performed: Yes Patient Position: left lateral decubitus Local Anesthetic: lidocaine 1% Amount of anesthesia used (mL): 5 Spinal Needle Gauge: 22G Interspace Used: L4-L5 Complications: unable to obtain CSF Additional Comments: Attempted 4 times in the L4-L5 space sterilely but was unable to obtain CSF. Course Vital Signs: Vital signs: Vital Signs Temperature 97.6 F 04/24/21 12:49 Pulse Rate 71 04/24/21 17:30 Respiratory Rate 14 04/24/21 17:30 Blood Pressure 165/104 04/24/21 12:49 Pulse Oximetry 90 04/24/21 17:30 MDM - General Adult MDM Narrative: Medical decision making narrative: [65]yo patient w/ hx of MS ALIYAH for AMS, last seen normal 1 hr ago. +collapse and fall earlier today. DDx broad including intracranial injuries, metabolic phenomenon, substance intoxication/withdrawal, and sepsis. Toxidrome Findings: Negative. No rigidity or clonus of LE ankle/knee reflexes, no diaphoresis, pupils mid-ranged equal and reactive to light, no signs of track pat/body patches, normal bowel sounds, and bladder non-palpable/ non- distended. Case was urgently discussed with Dr. Browning who recommended 1g of solu-medrol treatment in the ED. EKG: EKG: Normal Sinus Rhythm. No overt ischemic findings and no prolongation of QTc or QRS intervals. No signs of hyperkalemia (peaked T waves, QRS widening, and MI prolongation) Workup: CBC, CMP, acetaminophen level, salicylate level, VBG, CK, UA, ECG, UA/UDS, CT brain, XR Chest Intervention: IVF, zofran, solu-medrol 1g Continues to be AMS. Now crying and moving extremities. Dr. Browning will follow case. Attempted to do the LP but failed today after 4 attempts. Disposition: Admission Lab Data: Labs: Lab Results 04/24/21 04/24/21 04/24/21 14:35 14:35 14:35 WBC 6.2 10^3/uL 10^3/ uL (4.0-10.0) RBC 4.26 10^6/uL 10^6 /uL (4.1-5.3) Hgb 13.6 g/dL g/dL (11.5-15.3) Hct 42.7 % % (37.0-47.0) MCV 100.2 fl H fl (81-99) MCH 31.9 pg pg (28.0-34.0) MCHC 31.9 g/dL g/dL (30.0-36.0) RDW 12.7 % % (12.1-15.1) Plt Count 225 10^3/cmm 10^3 /cmm (130-400) MPV 12.0 fL H fL (7.4-10.4) Neut % (Auto) 79.1 % % Lymph % (Auto) 12.5 % % [place] % (Auto) 6.7 % % Eos % (Auto) 0.3 % % Baso % (Auto) 0.6 % % Neut # (Auto) 4.87 10^3/uL 10^3 /uL (1.8-7.7) Lymph # (Auto) 0.8 10^3/uL 10^3/ uL (0.8-4.8) [place] # (Auto) 0.4 10^3/uL 10^3/ uL (0.2-0.9) Eos # (Auto) 0.0 10^3/uL 10^3/ uL (0.0-0.8) Baso # (Auto) 0.0 10^3/uL 10^3/ uL (0.0-0.1) Nucleated RBC % (a uto) 0.3 % % Nucleated RBCs # 0.0 /100WBC /100W BC Sodium 139 mmol/L mmol/L (136-145) Potassium 4.8 mmol/L mmol/L (3.5-5.1) Chloride 104 mmol/L mmol/L (98-107) Carbon Dioxide 20 mmol/L L mmol/ L (22-29) Anion Gap 19.8 H (5-19) BUN 25 mg/dL H mg/dL (8-23) Creatinine 0.6 mg/dL mg/dL (0.5-0.9) GFR Calculation 100.3 mL/min mL/m in (90-130) Glucose 111 mg/dL mg/dL (65-115) Calculated Osmolal ity 293 mOsm/kg mOsm/ kg (285-295) Calcium 8.5 mg/dL mg/dL (8.5-10.5) Iron TIBC % Saturation Unsat Iron Binding Total Bilirubin 0.2 mg/dL mg/dL (0.15-1.2) AST 22 U/L U/L (0-32) ALT 31 U/L U/L (0-33) Alkaline Phosphata se 80 IU/L IU/L (35-105) Creatine Kinase 116 U/L U/L (26-192) Troponin T Baselin e 9 ng/L ng/L (0-10) C-Reactive Protein Total Protein 6.5 g/dL L g/dL (6.6-8.7) Albumin 4.0 g/dL g/dL (3.5-5.2) Globulin 2.5 g/dL g/dL (1.3-4.6) Lipase 43 U/L U/L (13-60) Vitamin B12 Procalcitonin TSH Prolactin Salicylates < 0.3 mg/dL L mg/ dL (3-10) Acetaminophen < 5.0 ug/mL L ug/ mL (10-30) Ethyl Alcohol RPR 04/24/21 04/24/21 04/24/21 15:15 15:15 15:15 WBC RBC Hgb Hct MCV MCH MCHC RDW Plt Count MPV Neut % (Auto) Lymph % (Auto) [place] % (Auto) Eos % (Auto) Baso % (Auto) Neut # (Auto) Lymph # (Auto) [place] # (Auto) Eos # (Auto) Baso # (Auto) Nucleated RBC % (a uto) Nucleated RBCs # Sodium Potassium Chloride Carbon Dioxide Anion Gap BUN Creatinine GFR Calculation Glucose Calculated Osmolal ity Calcium Iron 56 ug/dL ug/dL (37-145) TIBC 335 mcg/dl mcg/dl % Saturation 16.7 % L % (20-50) Unsat Iron Binding 279 ug/dL ug/dL (112-347) Total Bilirubin AST ALT Alkaline Phosphata se Creatine Kinase Troponin T Baselin e C-Reactive Protein 5.2 mg/L H mg/L (0.0-4.9) Total Protein Albumin Globulin Lipase Vitamin B12 703 pg/mL pg/mL (232-1245) Procalcitonin 0.05 ng/mL ng/mL (0-0.5) TSH 1.38 uIU/mL uIU/m L (0.27-4.20) Prolactin 10.55 ng/mL ng/mL (4.8-23.3) Salicylates Acetaminophen Ethyl Alcohol < 10 mg/dL mg/dL (0-10) RPR Nonreactive (Nonreactive) Imaging Data^: Other Imaging: Radiologist's impression: [place] [address] [address], [place] [address]PO Scan ReportSigned Patient: Nessa Richardson #: [id number]: 1955cct#:[id number]/Sex: 65 / FADM Date: 04/24/21Loc: ERRoom/Bed:Attending Dr: Ordering Provider/Ordering MD: Cb Leyva MD Date of Service: 04/24/21 Procedure(s): CT head wo con* [id number] Accession Number(s): [id number] Report Number: [id number] WS: [id number] CT HEAD NONCONTRAST HISTORY: ams TECHNIQUE: Contiguous axial imaging performed through the brain in 2.5 mm imaging. Bone and soft tissue windows. Sagittal and coronal reformats reviewed. All CT scans at [facility] use at least one of these dose optimization techniques: automated exposure control; mA and/or kV adjustment per patient size (includes targeted exams where dose is matched to clinical indication); or iterative reconstruction. DLP: 1870.55 mGy.cm COMPARISON: 04/04/2021 No acute intracranial hemorrhage, midline shift or mass effect. No atrophy or prior infarcts or herniation. Ventricles: Normal size with no hydrocephalus. Paranasal sinuses: As visualized are clear. Mastoid air cells: Well pneumatized. Calvarium and scalp: Skull is intact with no soft tissue edema or swelling. CT/CT head wo con* [id number] IMPRESSION: 1. Negative head CT. No acute intracranial hemorrhage or edema. 2. Stable since 04/04/2021. [place] [address] [address], [place] [address]JMbu ReportSigned Patient: Nessa Richardson #: [id number]: 1955cct#:[id number]/Sex: 65 / FADM Date: 04/24/21Loc: ERRoom/Bed:Attending Dr: Ordering Provider/Ordering MD: Cb Leyva MD Date of Service: 04/24/21 Procedure(s): XR chest 1V portable [id number] Accession Number(s): [id number] Report Number: [id number] WS: [id number] XR chest 1V portable [id number] REASON FOR EXAM: ams FINDINGS: Moderate tortuosity and ectasia of the thoracic aorta. Heart size within normal limits. Calcified granulomatous disease in both hemithoraces. No active pulmonary parenchymal or pleural disease identified. Mild changes of degenerative spondylosis in the mid and lower thoracic spine. XR/XR chest 1V portable [id number] IMPRESSION: No acute chest abnormality. 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
[2021-04-24] MEDS: sodium chloride 0.9% 1,000 ML 999 ML IV (14:01)
--- NOTE | 2021-04-24 14:28 | PC.PHAR ---
Addendum entered by Ree Javed 04/24/21 16:36: pts states he thinks he has a more accurate list at home and will try to bring it but states [facility] is what she takes Original Note: pt unable to verify medications-pts states that he is unsure of the pts medications-pts states [facility] pt is what the pt is taking-
[2021-04-24 14:43] LABS: Basophils % 0.6 %; Eosinophils % 0.3 %; Hematocrit 42.7 % (37.0-47.0); Hemoglobin 13.6 g/dL (11.5-15.3); Lymphocytes # 0.8 10^3/uL (0.8-4.8); Lymphocytes % 12.5 %; Mean Corpuscular HGB Conc 31.9 g/dL (30.0-36.0); Mean Corpuscular Hemoglobin 31.9 pg (28.0-34.0); Mean Corpuscular Volume 100.2 fl (81-99); Monocytes # 0.4 10^3/uL (0.2-0.9); Monocytes % 6.7 %; Neutrophils # 4.87 10^3/uL (1.8-7.7); Neutrophils % 79.1 %; Nucleated Red Blood Cells % 0.3 %; Platelet Count 225 10^3/cmm (130-400); Red Blood Count 4.26 10^6/uL (4.1-5.3); Red Cell Distribution Width 12.7 % (12.1-15.1); White Blood Count 6.2 10^3/uL (4.0-10.0)
[2021-04-24 15:06] LABS: Alanine Aminotransferase 31 U/L (0-33); Alkaline Phosphatase 80 IU/L (35-105); Aspartate Amino Transferase 22 U/L (0-32); Blood Urea Nitrogen 25 mg/dL (8-23); Calcium 8.5 mg/dL (8.5-10.5); Carbon Dioxide 20 mmol/L (22-29); Chloride 104 mmol/L (98-107); Creatine Phosphokinase 116 U/L (26-192); Globulin 2.5 g/dL (1.3-4.6); Glomerular Filtration Rate 100.3 mL/min (90-130); Glucose 111 mg/dL (65-115); Lipase 43 U/L (13-60); Osmolality Calculated 293 mOsm/kg (285-295); Sodium 139 mmol/L (136-145); Total Bilirubin 0.2 mg/dL (0.15-1.2); Total Protein 6.5 g/dL (6.6-8.7)
[2021-04-24 15:07] LABS: Acetaminophen < 5.0 ug/mL (10-30); Salicylate < 0.3 mg/dL (3-10); Troponin(5th) Baseline 9 ng/L (0-10)
[2021-04-24 15:08] LABS: Anion Gap 19.8 (5-19); Potassium 4.8 mmol/L (3.5-5.1)
--- NOTE | 2021-04-24 16:47 | P.HP_ITS ---
Providers/Chief Complaint Primary Care Provider: Stephanie Bush MD Chief Complaint: AMS History of Present Illness History taken by at bedside. Linda Richardson is a 65 year old female with apparent past medical history of mult iple sclerosis was brought into the ER today by her after he found her down and less responsive in the shower. As per the patient has had multiple episodes in the past 10 years more so than last 2 months(three episodes) and almost 2 episodes every year when she would be found down on the floor sometimes in the pool of vomitus, never with bowel or bladder accidents in unresponsive state and she will go to hospital and receive 1 mg of Solu-Medrol over next 2 to 3 days and would wake up and go home normal. Her neurologist at [facility] has attributed these episodes to MS flareup. As per the patient was at her baseline till today morning when she went for a hot shower when he found her down on the floor. Yesterday patient was emotional because of her strained relationship with her daughter other than that was not complaining of any nausea, vomiting, headache, dizziness, diarrhea, fever, pain. As per the patient patient has episodes of emotional bursts in the past when she would start crying and usually he attributes that to extra doses of clonazepam. He is not aware of any seizure episodes, psychiatric history or family history. He has not witnessed any of these episodes himself. Patient was last in the ER with similar symptoms on 04/04 when she was discharged after getting one dose of IV Solu-Medrol. Patient recently also had a right second metatarsal fracture for which she follows up with Dr. Rodgers with last follow-up on 04/07. In the ER patient was given 1 mg of IV Solu-Medrol after which patient was less somnolent but is mostly sleeping getting arousable to physical stimulus, not following simple commands or answering simple questions but moaning and groaning in pain but not able to localize pain. Work-up in the ER showed a white count 6.2, hemoglobin 13.6, MCV of 100.2, sodium 139, chloride of 104, creatinine of 0.6, AST/ALT of 22/31 with toxicology negative for salicylate or acetaminophen. Review of Systems General: Reports: ROS unobtainable due to mental status Medications/Allergies Home Medications Medication Instructions Recorded Confirmed Last Taken Type Vimpat 150 mg PO BID 02/21/20 04/24/21 02/20/20 History baclofen 30 mg PO TID@08,13,16 02/21/20 04/24/21 Unknown History clonazepam 0.5 mg PO BID 02/21/20 04/24/21 02/20/20 History dronabinol 5 mg PO TID 02/21/20 04/24/21 02/21/20 History ibuprofen 600 mg PO Q4H PRN 02/21/20 04/24/21 02/21/20 History primidone 100 mg PO BEDTIME 02/21/20 04/24/21 02/20/20 History sertraline 100 mg PO BID 02/21/20 04/24/21 02/20/20 History post op shoe #1 ea 04/07/21 04/24/21 Unknown Rx duloxetine 30 mg PO BID 04/24/21 04/24/21 Unknown History hydroxychloroquine 200 mg PO .ONCE A WEEK 04/24/21 04/24/21 Unknown History ketoconazole 1 applic TOPICAL . DIRECTED 04/24/21 04/24/21 Unknown History levothyroxine [Synthroid] 112 mcg PO DAILY 04/24/21 04/24/21 Unknown History methylprednisolone See Rx Instructions .ROUTE .COMPLEX 04/24/21 04/24/21 Unknown History sulfamethoxazole-trimethoprim 1 tab PO DAILY 04/24/21 04/24/21 Unknown History tapentadol [Nucynta ER] 50 mg PO BID 04/24/21 04/24/21 Unknown History triazolam 0.5 mg PO BEDTIME 04/24/21 04/24/21 Unknown History Allergies Allergy/AdvReac Type Severity Reaction Status Date / Time No Known Allergies Allergy Verified 04/07/21 08:02 PFSH Acute PFSH: Medical History (Updated 04/24/21 @ 16:54 by Saeid Billingsley MD) Exertional rhabdomyolysis Multiple sclerosis Slurred speech Surgical History H/O: hysterectomy History of bladder surgery Previous back surgery Social History Smoking and tobacco status: never smoked Vitals/I&O/Wt Last Vital Signs Temp 97.6 F 04/24/21 12:49 Pulse 63 04/24/21 12:49 Resp 16 04/24/21 12:49 BP 165/104 04/24/21 12:49 Pulse Ox 95 04/24/21 12:49 Weight last 48 hrs Weight 81.647 kg Physical Exam Narrative: EXAM NARRATIVE: General: Somnolent, wakes up and opens her eye to physical stimulus. Moaning when he wakes up HEENT: PERRLA, pupils bilaterally equal and reactive Chest: Normal vesicular breath sounds, no added sounds, equal good air entry bilaterally CVS: S1-S2 regular, no murmurs, no tachycardia, no gallops, no rubs Abdomen: Soft, nontender, no organomegaly, bowel sounds present Neuro: No focal deficits, no facial deformity, AO x3, power 5/5 in all limbs Data : 04/24/21 14:35 04/24/21 14:35 A&P Assessment and plan (1) Altered mental status: Status: Acute (2) Multiple sclerosis: Status: Acute Additional A&P Information Altered mental status: Unknown cause. As per the has happened before and has been diagnosed multiple sclerosis.. Presentation could be secondary to seizure disorder versus drug toxicity versus possible meningitis versus multiple sclerosis flareup versus conversion or any other psychiatric disorder versus overdose of pain medication. We will request for lumbar puncture from ERP. is agreeable to lumbar puncture if needed. No meningitis less likely. Seizure less likely as CPK on admission within normal limits though in the past have been elevated. CT head negative for any signs of acute abnormality on admission. MRI done last month consistent with demyelinating disorder. Check prolactin, vitamin B12, folate level, drug screen, urinalysis, RPR, TSH, flu swab, procalcitonin, TIBC, bacterial antigen, blood culture, Vimpat level, alcohol level. Fall precaution, seizure precaution. Restart Vimpat IV 150 mg twice daily. Continue oral medications including Klonopin 0.5 twice daily, duloxetine 30 mg twice daily, primidone 100 mg at bedtime, switch from tapentadol to [place] 5/325 every 4 hourly. D5 NS at 50 cc/h. Full code. NPO. Lovenox for DVT prophylaxis. Famotidine for PUD prophylaxis Attestations Medical Necessity Statement*: Admission for more than two midnights for management and evaluation of altered mental status Time Spent in Patient Care: Greater than 35 minutes (>than 50% of time spent in counselling and/or direct pt care on unit) . 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
[2021-04-24 17:45] LABS: C Reactive Protein 5.2 mg/L (0.0-4.9); Rapid Plasma Reagin Syphilis Nonreactive (Nonreactive); Thyroid Stimulating Hormone 1.38 uIU/mL (0.27-4.20)
[2021-04-24 17:53] LABS: Prolactin 10.55 ng/mL (4.8-23.3)
[2021-04-24 17:54] LABS: Procalcitonin 0.05 ng/mL (0-0.5)
[2021-04-24 17:56] LABS: Alcohol Level < 10 mg/dL (0-10)
[2021-04-24] MEDS: haloperidol inj 5 mg/mL INJ 1 mL IVP (18:11)
[2021-04-24 18:12] LABS: Iron 56 ug/dL (37-145); Percent Saturation 16.7 % (20-50); Total Iron Binding Capacity 335 mcg/dl; Unsaturated Iron Binding 279 ug/dL (112-347)
[2021-04-24 18:22] LABS: Vitamin B12 703 pg/mL (232-1245)
--- NOTE | 2021-04-24 18:42 | PC.NURSE ---
time out 1821 Autumn Kelsey,RN Linda Richardson for lumbar puncture
[2021-04-24 18:57] LABS: Folate Level > 20.0 ng/mL (4.8-37.3)
[2021-04-24] MEDS: CLONazepam 1 mg Tablet 0.5 MG PO (23:03)
[2021-04-24] MEDS: duloxetine 30 mg Capsule PO (23:03)
[2021-04-24] MEDS: famotidine 20 mg/2 mL INJ IVP (23:03)
[2021-04-24] MEDS: enoxaparin 40 mg/0.4 mL Syringe SUBCUT (23:16)
[2021-04-24] MEDS: dextrose 5%-sod chloride 0.9% 1,000 ML 75 ML IV (23:17)
[2021-04-25] VITALS (10 sets, daily range): BP systolic 114–144; BP diastolic 56–75; PULSE 63–75; RESP 16–18; TEMP 36.4–36.7; O2SAT 93–97
[2021-04-25 01:02] LABS: Add Urine Microscopic? YES; Bilirubin Urine Neg (Negative); Blood Urine 2+ (Negative); Glucose Urine UA Norm (Normal); Ketones Urine Negative (Negative); Leukocyte Esterase Urine Negative (Negative); Nitrate Urine Negative (Negative); Protein Urine Neg (Negative); Urine Appearance Clear (CLEAR); Urine Color Yellow (Yellow); Urobilinogen Urine Norm (Negative); pH Urine 6 (5-7)
[2021-04-25 01:06] LABS: Add Urine Culture? No; Bacteria Urine TRACE /hpf; Squamous Epithelial Cell Urine 0-4 /hpf (0-5); WBC Urine 0-4 /hpf (0-5)
[2021-04-25 01:10] LABS: Amphetamines Screen Urine Negative (Negative); Barbiturates Screen Urine Positive (Negative); Benzodiazepines Screen Urine Negative (Negative); Cocaine Screen Urine Negative (Negative); Opiate Screen Urine Negative (Negative); PCP Screen Urine Negative (Negative); THC Screen Urine Positive (Negative)
[2021-04-25 01:20] LABS: Influenza A by IFA Negative (Negative); Influenza B by IFA Negative (Negative)
[2021-04-25] MEDS: primidone 50 mg Tablet 100 MG PO (01:45)
--- NOTE | 2021-04-25 03:52 | PC.NURSE ---
Pt. IV in left wrist became infiltrated. I have removed Catheter and put a bandage at site. I have placed the patients hand and arm in a warm blanket to reduce swelling. I have notified ER doctor , no other orders given. Pt. right arm IV is flushing and working fine, fluids have been moved to this site.
--- NOTE | 2021-04-25 07:31 | PC.NURSE ---
Received report assumed care. Resting with lights off, laying on right side, alert and oriented.
[2021-04-25] MEDS: famotidine 20 mg/2 mL INJ IVP (09:46)
[2021-04-25] MEDS: levothyroxine 112 mcg Tablet PO (09:46)
[2021-04-25 11:06] LABS: Basophils % 0.1 %; Hematocrit 39.2 % (37.0-47.0); Hemoglobin 12.8 g/dL (11.5-15.3); Lymphocytes % 13.5 %; Mean Corpuscular HGB Conc 32.7 g/dL (30.0-36.0); Mean Corpuscular Hemoglobin 32.2 pg (28.0-34.0); Mean Corpuscular Volume 98.7 fl (81-99); Monocytes # 0.9 10^3/uL (0.2-0.9); Monocytes % 12.8 %; Neutrophils # 5.16 10^3/uL (1.8-7.7); Neutrophils % 73.3 %; Nucleated Red Blood Cells % 0 %; Platelet Count 230 10^3/cmm (130-400); Red Blood Count 3.97 10^6/uL (4.1-5.3); Red Cell Distribution Width 13.1 % (12.1-15.1)
[2021-04-25 11:28] LABS: Alanine Aminotransferase 25 U/L (0-33); Albumin Level 3.8 g/dL (3.5-5.2); Alkaline Phosphatase 68 IU/L (35-105); Anion Gap 16.7 (5-19); Aspartate Amino Transferase 15 U/L (0-32); Blood Urea Nitrogen 13 mg/dL (8-23); Calcium 8.1 mg/dL (8.5-10.5); Carbon Dioxide 22 mmol/L (22-29); Chloride 110 mmol/L (98-107); Globulin 1.9 g/dL (1.3-4.6); Glomerular Filtration Rate 123.8 mL/min (90-130); Glucose 100 mg/dL (65-115); Osmolality Calculated 300 mOsm/kg (285-295); Potassium 3.7 mmol/L (3.5-5.1); Sodium 145 mmol/L (136-145); Total Bilirubin 0.2 mg/dL (0.15-1.2); Total Protein 5.7 g/dL (6.6-8.7)
[2021-04-25 11:30] LABS: Magnesium 2.2 mg/dL (1.7-2.3); Phosphorus 2.3 mg/dL (2.5-4.5)
[2021-04-25] MEDS: acetaminophen 325 mg Tablet 650 MG PO (12:37)
--- NOTE | 2021-04-25 14:23 | PM.DCS ---
Discharge Providers Date of Admission: 04/24/21 16:17 Date of Discharge: April 25, 2021 Attending Provider at Admission: Saeid Billingsley MD Attending Provider at Discharge: Saeid Billingsley MD Consults: Neurology: Dr. Browning Primary Care Provider: Stephanie Bush MD Diagnoses at Discharge Discharge Diagnosis (1) Altered mental status: Status: Acute (2) Multiple sclerosis: Status: Acute Reason for Visit Reason for Visit: AMS Hospital Course Hospital Course History taken by at bedside. Linda Richardson is a 65 year old female with apparent past medical history of multiple sclerosis was brought into the ER today by her after he found her down and less responsive in the shower. As per the patient has had multiple episodes in the past 10 years more so than last 2 months(three episodes) and almost 2 episodes every year when she would be found down on the floor sometimes in the pool of vomitus, never with bowel or bladder accidents in unresponsive state and she will go to hospital and receive 1 mg of Solu-Medrol over next 2 to 3 days and would wake up and go home normal. Her neurologist at [facility] has attributed these episodes to MS flareup. As per the patient was at her baseline till today morning when she went for a hot shower when he found her down on the floor. Yesterday patient was emotional because of her strained relationship with her daughter other than that was not complaining of any nausea, vomiting, headache, dizziness, diarrhea, fever, pain. As per the patient patient has episodes of emotional bursts in the past when she would start crying and usually he attributes that to extra doses of clonazepam. He is not aware of any seizure episodes, psychiatric history or family history. He has not witnessed any of these episodes himself. Patient was last in the ER with similar symptoms on 04/04 when she was discharged after getting one dose of IV Solu-Medrol. Patient recently also had a right second metatarsal fracture for which she follows up with Dr. Rodgers with last follow-up on 04/07. In the ER patient was given 1 mg of IV Solu-Medrol after which patient was less somnolent but is mostly sleeping getting arousable to physical stimulus, not following simple commands or answering simple questions but moaning and groaning in pain but not able to localize pain. Work-up in the ER showed a white count 6.2, hemoglobin 13.6, MCV of 100.2, sodium 139, chloride of 104, creatinine of 0.6, AST/ALT of 22/ with toxicology negative for salicylate, acetaminophen, alcohol. Drug screen was otherwise negative other than barbiturates and marijuana. CT head was negative on admission. MRI was not done as of done recently on 04/04 was consistent with demyelinating disease. Patient was admitted for further work-up. Lumbar puncture could not be done as family declined. Vimpat levels are sent and are pending. Patient was started on IV Vimpat during hospitalization. Patient returned back to her baseline by next morning. Her other blood work was otherwise unremarkable including vitamin B12, folate, TSH, prolactin, procalcitonin. It is believed patient's symptoms could be secondary to breakthrough seizures from progression of multiple sclerosis. Other possibility is that patient is on multiple medications at home to cause somnolence. Dose of baclofen on discharge were decreased to 10 mg 3 times a day and dronabinol was discontinued. Patient was advised to take Klonopin as needed. Patient is being discharged in hemodynamically stable condition at her baseline mentation with advised to follow-up with her outpatient neurologist at earliest. Physical Exam Narrative: EXAM NARRATIVE: General: AOx3, in mild acute distress because of headache. HEENT: PERRLA, pupils bilaterally equal and reactive Chest: Normal vesicular breath sounds, no added sounds, equal good air entry bilaterally CVS: S1-S2 regular, no murmurs, no tachycardia, no gallops, no rubs Abdomen: Soft, nontender, no organomegaly, bowel sounds present Neuro: No focal deficits, no facial deformity, AO x3, power 5/5 in all limbs Urinary Catheter Management^: [place]: Cath Placed During This Visit: yes Reason for Continuing Indwelling Catheter: Acute Urinary Retention or Obstruction Urinary Catheter Date of Insertion: 04/24/21 Urinary Catheter Time of Insertion: 22:41 Discharge Data Data Completed and Pending: Completed Studies During Hospitalization Category Date Time Status CT head wo con* [id number] Urgent Cat Scan 04/24/21 12:48 Completed XR chest 1V radha ble [id number] Urgent Exams 04/24/21 12:48 Completed Pending at discharge Category Date Time Status Blood Culture Sta t Lab 04/24/21 17:30 Results [place] (Vimpat ) Stat Lab 04/24/21 15:15 Received Labs from last 24 hours 04/25/21 04/25/21 04/25/21 10:51 10:51 10:51 WBC 7.0 RBC 3.97 L Hgb 12.8 Hct 39.2 MCV 98.7 MCH 32.2 MCHC 32.7 RDW 13.1 Plt Count 230 MPV 12.0 H Neut % (Auto) 73.3 Lymph % (Auto) 13.5 Garrett % (Auto) 12.8 Eos % (Auto) 0.0 Baso % (Auto) 0.1 Neut # (Auto) 5.16 Lymph # (Auto) 1.0 Garrett # (Auto) 0.9 Eos # (Auto) 0.0 Baso # (Auto) 0.0 Nucleated RBC % (a uto) 0 Nucleated RBCs # 0.0 Sodium 145 Potassium 3.7 Chloride 110 H Carbon Dioxide 22 Anion Gap 16.7 BUN 13 Creatinine 0.5 GFR Calculation 123.8 Glucose 100 Calculated Osmolal ity 300 H Calcium 8.1 L Phosphorus 2.3 L Magnesium 2.2 Iron TIBC % Saturation Unsat Iron Binding Total Bilirubin 0.2 AST 15 ALT 25 Alkaline Phosphata se 68 Creatine Kinase Troponin T Baselin e C-Reactive Protein Total Protein 5.7 L Albumin 3.8 Globulin 1.9 Lipase Vitamin B12 Folate Procalcitonin TSH Prolactin Urine Color Urine Appearance Urine pH Ur Specific Gravit y Urine Protein Urine Glucose (UA) Urine Ketones Urine Blood Urine Nitrate Urine Bilirubin Urine Urobilinogen Ur Leukocyte Ambar ase Urine RBC Urine WBC Ur Squamous Epith Cells Amorphous Sediment Urine Bacteria Salicylates Urine Opiates Scre en Acetaminophen Ur Barbiturates Sc reen [place] Level Ur Phencyclidine S crn Ur Amphetamines Sc reen U Benzodiazepines Scrn Urine Cocaine Scre en U Marijuana (THC) Screen Ethyl Alcohol RPR Influenza Type A A g Influenza Type B A g 04/25/21 04/25/21 04/25/21 00:53 00:53 00:53 WBC RBC Hgb Hct MCV MCH MCHC RDW Plt Count MPV Neut % (Auto) Lymph % (Auto) Garrett % (Auto) Eos % (Auto) Baso % (Auto) Neut # (Auto) Lymph # (Auto) Garrett # (Auto) Eos # (Auto) Baso # (Auto) Nucleated RBC % (a uto) Nucleated RBCs # Sodium Potassium Chloride Carbon Dioxide Anion Gap BUN Creatinine GFR Calculation Glucose Calculated Osmolal ity Calcium Phosphorus Magnesium Iron TIBC % Saturation Unsat Iron Binding Total Bilirubin AST ALT Alkaline Phosphata se Creatine Kinase Troponin T Baselin e C-Reactive Protein Total Protein Albumin Globulin Lipase Vitamin B12 Folate Procalcitonin TSH Prolactin Urine Color Yellow Urine Appearance Clear Urine pH 6 Ur Specific Gravit y 1.010 Urine Protein Neg Urine Glucose (UA) Norm Urine Ketones Negative Urine Blood 2+ H Urine Nitrate Negative Urine Bilirubin Neg Urine Urobilinogen Norm Ur Leukocyte Ambar ase Negative Urine RBC 5-10 H Urine WBC 0-4 H Ur Squamous Epith Cells 0-4 H Amorphous Sediment Not Reportable Urine Bacteria Trace Salicylates Urine Opiates Scre en Negative Acetaminophen Ur Barbiturates Sc reen Positive H [place] Level Ur Phencyclidine S crn Negative Ur Amphetamines Sc reen Negative U Benzodiazepines Scrn Negative Urine Cocaine Scre en Negative U Marijuana (THC) Screen Positive H Ethyl Alcohol RPR Influenza Type A A g Negative Influenza Type B A g Negative 04/24/21 04/24/21 04/24/21 15:15 15:15 15:15 WBC RBC Hgb Hct MCV MCH MCHC RDW Plt Count MPV Neut % (Auto) Lymph % (Auto) Garrett % (Auto) Eos % (Auto) Baso % (Auto) Neut # (Auto) Lymph # (Auto) Garrett # (Auto) Eos # (Auto) Baso # (Auto) Nucleated RBC % (a uto) Nucleated RBCs # Sodium Potassium Chloride Carbon Dioxide Anion Gap BUN Creatinine GFR Calculation Glucose Calculated Osmolal ity Calcium Phosphorus Magnesium Iron TIBC % Saturation Unsat Iron Binding Total Bilirubin AST ALT Alkaline Phosphata se Creatine Kinase Troponin T Baselin e C-Reactive Protein Total Protein Albumin Globulin Lipase Vitamin B12 Folate > 20.0 Procalcitonin TSH Prolactin 10.55 Urine Color Urine Appearance Urine pH Ur Specific Gravit y Urine Protein Urine Glucose (UA) Urine Ketones Urine Blood Urine Nitrate Urine Bilirubin Urine Urobilinogen Ur Leukocyte Ambar ase Urine RBC Urine WBC Ur Squamous Epith Cells Amorphous Sediment Urine Bacteria Salicylates Urine Opiates Scre en Acetaminophen Ur Barbiturates Sc reen [place] Level Pending Ur Phencyclidine S crn Ur Amphetamines Sc reen U Benzodiazepines Scrn Urine Cocaine Scre en U Marijuana (THC) Screen Ethyl Alcohol < 10 RPR Influenza Type A A g Influenza Type B A g 04/24/21 04/24/21 04/24/21 15:15 15:15 14:35 WBC RBC Hgb Hct MCV MCH MCHC RDW Plt Count MPV Neut % (Auto) Lymph % (Auto) Garrett % (Auto) Eos % (Auto) Baso % (Auto) Neut # (Auto) Lymph # (Auto) Garrett # (Auto) Eos # (Auto) Baso # (Auto) Nucleated RBC % (a uto) Nucleated RBCs # Sodium Potassium Chloride Carbon Dioxide Anion Gap BUN Creatinine GFR Calculation Glucose Calculated Osmolal ity Calcium Phosphorus Magnesium Iron 56 TIBC 335 % Saturation 16.7 L Unsat Iron Binding 279 Total Bilirubin AST ALT Alkaline Phosphata se Creatine Kinase Troponin T Baselin e 9 C-Reactive Protein 5.2 H Total Protein Albumin Globulin Lipase Vitamin B12 703 Folate Procalcitonin 0.05 TSH 1.38 Prolactin Urine Color Urine Appearance Urine pH Ur Specific Gravit y Urine Protein Urine Glucose (UA) Urine Ketones Urine Blood Urine Nitrate Urine Bilirubin Urine Urobilinogen Ur Leukocyte Ambar ase Urine RBC Urine WBC Ur Squamous Epith Cells Amorphous Sediment Urine Bacteria Salicylates Urine Opiates Scre en Acetaminophen Ur Barbiturates Sc reen [place] Level Ur Phencyclidine S crn Ur Amphetamines Sc reen U Benzodiazepines Scrn Urine Cocaine Scre en U Marijuana (THC) Screen Ethyl Alcohol RPR Nonreactive Influenza Type A A g Influenza Type B A g 04/24/21 04/24/21 14:35 14:35 WBC 6.2 RBC 4.26 Hgb 13.6 Hct 42.7 MCV 100.2 H MCH 31.9 MCHC 31.9 RDW 12.7 Plt Count 225 MPV 12.0 H Neut % (Auto) 79.1 Lymph % (Auto) 12.5 Garrett % (Auto) 6.7 Eos % (Auto) 0.3 Baso % (Auto) 0.6 Neut # (Auto) 4.87 Lymph # (Auto) 0.8 Garrett # (Auto) 0.4 Eos # (Auto) 0.0 Baso # (Auto) 0.0 Nucleated RBC % (a uto) 0.3 Nucleated RBCs # 0.0 Sodium 139 Potassium 4.8 Chloride 104 Carbon Dioxide 20 L Anion Gap 19.8 H BUN 25 H Creatinine 0.6 GFR Calculation 100.3 Glucose 111 Calculated Osmolal ity 293 Calcium 8.5 Phosphorus Magnesium Iron TIBC % Saturation Unsat Iron Binding Total Bilirubin 0.2 AST 22 ALT 31 Alkaline Phosphata se 80 Creatine Kinase 116 Troponin T Baselin e C-Reactive Protein Total Protein 6.5 L Albumin 4.0 Globulin 2.5 Lipase 43 Vitamin B12 Folate Procalcitonin TSH Prolactin Urine Color Urine Appearance Urine pH Ur Specific Gravit y Urine Protein Urine Glucose (UA) Urine Ketones Urine Blood Urine Nitrate Urine Bilirubin Urine Urobilinogen Ur Leukocyte Ambar ase Urine RBC Urine WBC Ur Squamous Epith Cells Amorphous Sediment Urine Bacteria Salicylates < 0.3 L Urine Opiates Scre en Acetaminophen < 5.0 L Ur Barbiturates Sc reen [place]os[place] Level Ur Phencyclidine S crn Ur Amphetamines Sc reen U Benzodiazepines Scrn Urine Cocaine Scre en U Marijuana (THC) Screen Ethyl Alcohol RPR Influenza Type A A g Influenza Type B A g Addt'l Data from Hospital Stay: Laboratory Results WBC 7.0 10^3/uL (4.0- 10.0) 04/25/21 10:51 RBC 3.97 10^6/uL (4.1 -5.3) L 04/25/21 10:51 Hgb 12.8 g/dL (11.5-1 5.3) 04/25/21 10:51 Hct 39.2 % (37.0-47.0 ) 04/25/21 10:51 MCV 98.7 fl (81-99) 04/25/21 10:51 MCH 32.2 pg (28.0-34. 0) 04/25/21 10:51 MCHC 32.7 g/dL (30.0-3 6.0) 04/25/21 10:51 RDW 13.1 % (12.1-15.1 ) 04/25/21 10:51 Plt Count 230 10^3/cmm (130 -400) 04/25/21 10:51 MPV 12.0 fL (7.4-10.4 ) H 04/25/21 10:51 Neut % (Auto) 73.3 % 04/25/21 10:51 Lymph % (Auto) 13.5 % 04/25/21 10:51 Garrett % (Auto) 12.8 % 04/25/21 10:51 Eos % (Auto) 0.0 % 04/25/21 10:51 Baso % (Auto) 0.1 % 04/25/21 10:51 Neut # (Auto) 5.16 10^3/uL (1.8 -7.7) 04/25/21 10:51 Lymph # (Auto) 1.0 10^3/uL (0.8- 4.8) 04/25/21 10:51 Garrett # (Auto) 0.9 10^3/uL (0.2- 0.9) 04/25/21 10:51 Eos # (Auto) 0.0 10^3/uL (0.0- 0.8) 04/25/21 10:51 Baso # (Auto) 0.0 10^3/uL (0.0- 0.1) 04/25/21 10:51 Nucleated RBC % (a uto) 0 % 04/25/21 10:51 Nucleated RBCs # 0.0 /100WBC 04/25/21 10:51 Sodium 145 mmol/L (136-1 45) 04/25/21 10:51 Potassium 3.7 mmol/L (3.5-5 .1) 04/25/21 10:51 Chloride 110 mmol/L (98-10 7) H 04/25/21 10:51 Carbon Dioxide 22 mmol/L (22-29) 04/25/21 10:51 Anion Gap 16.7 (5-19) 04/25/21 10:51 BUN 13 mg/dL (8-23) 04/25/21 10:51 Creatinine 0.5 mg/dL (0.5-0. 9) 04/25/21 10:51 GFR Calculation 123.8 mL/min (90- 130) 04/25/21 10:51 Glucose 100 mg/dL (65-115 ) 04/25/21 10:51 Calculated Osmolal ity 300 mOsm/kg (285- 295) H 04/25/21 10:51 Calcium 8.1 mg/dL (8.5-10 .5) L 04/25/21 10:51 Phosphorus 2.3 mg/dL (2.5-4. 5) L 04/25/21 10:51 Magnesium 2.2 mg/dL (1.7-2. 3) 04/25/21 10:51 Iron 56 ug/dL (37-145) 04/24/21 15:15 TIBC 335 mcg/dl 04/24/21 15:15 % Saturation 16.7 % (20-50) L 04/24/21 15:15 Unsat Iron Binding 279 ug/dL (112-34 7) 04/24/21 15:15 Total Bilirubin 0.2 mg/dL (0.15-1 .2) 04/25/21 10:51 AST 15 U/L (0-32) 04/25/21 10:51 ALT 25 U/L (0-33) 04/25/21 10:51 Alkaline Phosphata se 68 IU/L (35-105) 04/25/21 10:51 Creatine Kinase 116 U/L (26-192) 04/24/21 14:35 Troponin T Baselin e 9 ng/L (0-10) 04/24/21 14:35 C-Reactive Protein 5.2 mg/L (0.0-4.9 ) H 04/24/21 15:15 Total Protein 5.7 g/dL (6.6-8.7 ) L 04/25/21 10:51 Albumin 3.8 g/dL (3.5-5.2 ) 04/25/21 10:51 Globulin 1.9 g/dL (1.3-4.6 ) 04/25/21 10:51 Lipase 43 U/L (13-60) 04/24/21 14:35 Vitamin B12 703 pg/mL (232-12 45) 04/24/21 15:15 Folate > 20.0 ng/mL (4.8 -37.3) 04/24/21 15:15 Procalcitonin 0.05 ng/mL (0-0.5 ) 04/24/21 15:15 TSH 1.38 uIU/mL (0.27 -4.20) 04/24/21 15:15 Prolactin 10.55 ng/mL (4.8- 23.3) 04/24/21 15:15 Urine Color Yellow (Yellow) 04/25/21 00:53 Urine Appearance Clear (CLEAR) 04/25/21 00:53 Urine pH 6 (5-7) 04/25/21 00:53 Ur Specific Gravit y 1.010 (1.005-1.0 30) 04/25/21 00:53 Urine Protein Neg (Negative) 04/25/21 00:53 Urine Glucose (UA) Norm (Normal) 04/25/21 00:53 Urine Ketones Negative (Negati ve) 04/25/21 00:53 Urine Blood 2+ (Negative) H 04/25/21 00:53 Urine Nitrate Negative (Negati ve) 04/25/21 00:53 Urine Bilirubin Neg (Negative) 04/25/21 00:53 Urine Urobilinogen Norm mg/dL (Negat mikhail) 04/25/21 00:53 Ur Leukocyte Ambar ase Negative (Negati ve) 04/25/21 00:53 Urine RBC 5-10 /hpf (0-2) H 04/25/21 00:53 Urine WBC 0-4 /hpf (0-5) H 04/25/21 00:53 Ur Squamous Epith Cells 0-4 /hpf (0-5) H 04/25/21 00:53 Amorphous Sediment Not Reportable 04/25/21 00:53 Urine Bacteria Trace /hpf (NONE) 04/25/21 00:53 Salicylates < 0.3 mg/dL (3-10 ) L 04/24/21 14:35 Urine Opiates Scre en Negative ng/mL (N egative) 04/25/21 00:53 Acetaminophen < 5.0 ug/mL (10-3 0) L 04/24/21 14:35 Ur Barbiturates Sc reen Positive ng/mL (N egative) H 04/25/21 00:53 Ur Phencyclidine S crn Negative ng/mL (N egative) 04/25/21 00:53 Ur Amphetamines Sc reen Negative ng/mL (N egative) 04/25/21 00:53 U Benzodiazepines Scrn Negative ng/mL (N egative) 04/25/21 00:53 Urine Cocaine Scre en Negative ng/mL (N egative) 04/25/21 00:53 U Marijuana (THC) Screen Positive ng/mL (N egative) H 04/25/21 00:53 Ethyl Alcohol < 10 mg/dL (0-10) 04/24/21 15:15 RPR Nonreactive (Non reactive) 04/24/21 15:15 Influenza Type A A g Negative (Negati ve) 04/25/21 00:53 Influenza Type B A g Negative (Negati ve) 04/25/21 00:53 Impressions Chest X-Ray 04/24/21 12:48 IMPRESSION: No acute chest abnormality. Head CT 04/24/21 12:48 IMPRESSION: 1. Negative head CT. No acute intracranial hemorrhage or edema. 2. Stable since 04/04/2021. Vitals: Last Vital Signs Temp 97.5 F L 04/25/21 11:49 Pulse 75 04/25/21 11:49 Resp 18 04/25/21 11:49 BP 144/75 04/25/21 11:49 Pulse Ox 96 04/25/21 11:49 Discharge Plan Discharge Patient Disposition: Home Condition: Stable Prescriptions: New prednisone 10 mg tablets,dose pack See Rx Instructions .ROUTE .COMPLEX Qty: 21 RF: 0 Continued (DME) post op shoe See Rx Instructions .Route .MEDSUPPLY Qty: 1 RF: 0 primidone 50 mg tablet 100 mg PO BEDTIME RF: 0 clonazepam 0.5 mg tablet 0.5 mg PO BID RF: 0 sertraline 100 mg tablet 100 mg PO BID RF: 0 ibuprofen 600 mg tablet 600 mg PO Q4H PRN (Reason: Pain) RF: 0 Vimpat 150 mg tablet 150 mg PO BID RF: 0 ketoconazole 2 % shampoo 1 applic TOPICAL . DIRECTED RF: 0 triazolam 0.25 mg tablet 0.5 mg PO BEDTIME RF: 0 hydroxychloroquine 200 mg tablet 200 mg PO .ONCE A WEEK RF: 0 levothyroxine [Synthroid] 112 mcg tablet 112 mcg PO DAILY RF: 0 duloxetine 30 mg capsule,delayed release(DR/EC) 30 mg PO BID RF: 0 Nucynta ER 50 mg tablet extended release 12 hr 50 mg PO BID RF: 0 Changed baclofen 20 mg tablet 10 mg PO TID@08,13,16 Qty: 0 RF: 0 Discontinued dronabinol 5 mg capsule 5 mg PO TID RF: 0 sulfamethoxazole-trimethoprim 800-160 mg tablet 1 tab PO DAILY PRN (Reason: rx filled 04/08/21 30d/s-pts states he thin) RF: 0 methylprednisolone 4 mg tablets,dose pack See Rx Instructions .ROUTE .COMPLEX RF: 0 Discharge Orders: Discharge Order (Routine); Ordered 04/25/21 Ordered By: aSeid Billingsley Referrals: Stephanie Bush MD [Primary Care Provider] - 7-10 days Discharge Diet: Advance as tolerated Discharge Activity: Resume usual activity Patient Instructions: Multiple Sclerosis, Opioid Safety Activity Restrictions/Additional Instructions: Please follow-up with your outpatient neurologist at the earliest. Multiple medication dose should be changed. Going forward do not take dronabinol anymore. Decrease the dose of baclofen to 10 mg 3 times a day from 30 mg 3 times a day. Discharge Attestations Time Spent in Discharge Care*: greater than 30 min Specific Discharge Activities: educating patient, educating and/or supporting family/caregiver, discussing with pcp/other providers, discussing with rehabilitation caseworker/social workers/dc planners, documenting/other paperwork and evaluating patient/reviewing data Status at Discharge: Cognitive status at discharge: cognitively intact, Behavioral status at discharge: cooperative, Functional status at discharge: independent ambulation Overall status at discharge: patient is back to baseline Quality Metrics Clinical Quality Measures During this hospital stay, did patient experience: None Coding Level of Care Code Acute Chg DC note Diagnoses Altered mental status R41.82 Multiple sclerosis G35
--- NOTE | 2021-04-25 16:23 | PC.NURSE ---
Patient is A&Ox3. Respirations even and non-labored on room air. IV removed intact. Patient tolerated well. Reviewed discharge instructions with patient and at bedside. Patient and verbalized understanding of the need to make follow up appointments on Tuesday for this next week if possible and verbalized understanding to the changes to her medications as well as how to take the steroids. Patient wheel chaired to private car.
--- NOTE | 2021-04-27 18:20 | PM.PN ---
Vitals/I&O/Wt Last Vital Signs Temp 97.5 F L 04/25/21 16:22 Pulse 75 04/25/21 16:22 Resp 18 04/25/21 16:22 BP 144/75 04/25/21 16:22 Pulse Ox 96 04/25/21 16:22 Physical Exam Urinary Catheter Management^: [place]: Cath Placed During This Visit: yes, but has since been removed by the nurse Reason for Continuing Indwelling Catheter: Decision to DC Catheter Urinary Catheter Date of Insertion: 04/24/21 Urinary Catheter Time of Insertion: 22:41 Date Urinary Catheter Removed: 04/25/21 Time Urinary Catheter Discontinued: 12:00 Data : 04/25/21 10:51 04/25/21 10:51 Attestations Medical Necessity Statement*: She presented with bizarre alteration in mental status. Coding Level of Care Code Acute Various Exceptionalities Teacher for Rhonda Caicedo
[2021-04-29 09:03] LABS: Lacosamie (Vimpat) 13.5 mcg/mL
== END 2021-04-25 16:25 | disposition home or self-care (01) | DRG 60 ==
LOC: ER 18:28 → ER IP 21:56 → MEDSURG 04-25 07:06
PROVIDERS: Admitting Provider Student in an Organized Health Care Education/Training Program; Emergency Provider Emergency Medicine; PCP Internal Medicine; Visit Provider Student in an Organized Health Care Education/Training Program
DX: G35 Multiple sclerosis (principal); R40.4 Transient alteration of awareness
CPT/HCPCS: 36415; 51702; 62270; 70450; 71045; 80053; 80299; 80306; 80307; 81001; 82550; 82607; 82746; 83540; 83550; 83690; 83735; 84100; 84145; 84146; 84443; 84484; 85025; 86140; 86403; 86592; 87040; 87804; 94664; 96365; 96372; 96375; 99285; C9254; J1630; J1650; J2930; J3490; J7030; J7050

== ENCOUNTER 2021-04-27 14:00 | Outpatient (CLI) | payer MEDICARE, BC, SELFPAY ==
[2021-04-27 14:20] VITALS: BP 143/92; PULSE 93; RESP 18; TEMP 37.2; O2SAT 96
[2021-04-27] MEDS: sodium chloride 0.9% 250 ML 200 ML IV (14:58)
== END 2021-04-27 14:01 | disposition home or self-care (01) ==
PROVIDERS: PCP Internal Medicine; Referring Provider Nurse Practitioner Family; Visit Provider Nurse Practitioner Family
DX: G35 Multiple sclerosis (principal)
CPT/HCPCS: 96365; J2930; J7030; J7050

== ENCOUNTER 2021-04-28 06:47 | Outpatient (CLI) | payer MEDICARE, BC, SELFPAY ==
[2021-04-28 09:35] VITALS: BP 149/89; PULSE 80; RESP 18; TEMP 37.2; O2SAT 97
[2021-04-28 11:34] VITALS: BP 145/82; PULSE 77; RESP 18; TEMP 37.1; O2SAT 98
== END 2021-04-28 06:48 | disposition home or self-care (01) ==
LOC: ONCMED 06:48
PROVIDERS: PCP Internal Medicine; Visit Provider Nurse Practitioner Family
DX: G35 Multiple sclerosis (principal); Z79.899 Other long term (current) drug therapy
CPT/HCPCS: 96365; J2930; J7030

== ENCOUNTER → 2021-05-06 08:32 | Outpatient (BNVA) | payer MEDICARE, BC, SELFPAY | PROVIDERS: PCP Internal Medicine; Visit Provider Orthopaedic Surgery | DX: S92.321A Displaced fracture of second metatarsal bone, right foot, initial encounter for closed fracture (principal); S92.331A Displaced fracture of third metatarsal bone, right foot, initial encounter for closed fracture; X58.XXXA Exposure to other specified factors, initial encounter | CPT/HCPCS: 73630 ==

== ENCOUNTER → 2021-06-17 13:00 | Outpatient (BNVA) | payer MEDICARE, BC, SELFPAY | PROVIDERS: PCP Internal Medicine; Visit Provider Orthopaedic Surgery | DX: S92.321A Displaced fracture of second metatarsal bone, right foot, initial encounter for closed fracture (principal); S92.331A Displaced fracture of third metatarsal bone, right foot, initial encounter for closed fracture; X58.XXXA Exposure to other specified factors, initial encounter | CPT/HCPCS: 73630 ==

== ENCOUNTER → 2021-07-14 13:05 | Outpatient (BNVA) | payer MEDICARE, BC, SELFPAY | PROVIDERS: PCP Internal Medicine; Visit Provider Orthopaedic Surgery | DX: S92.321A Displaced fracture of second metatarsal bone, right foot, initial encounter for closed fracture (principal); S92.331A Displaced fracture of third metatarsal bone, right foot, initial encounter for closed fracture; X58.XXXA Exposure to other specified factors, initial encounter | CPT/HCPCS: 73630 ==

== ENCOUNTER 2021-09-04 12:02 | Outpatient (CLI) | payer MEDICARE, BC, SELFPAY ==
--- NOTE | 2021-09-04 12:17 | XRR_ITS ---
PROCEDURE INFORMATION: Exam: XR Lumbosacral Spine Exam date and time: 09/04/2021 12:22 PM Age: 65 years old Clinical indication: Low back pain; Prior surgery; Surgery type: --l-spine nerve abalation TECHNIQUE: Imaging protocol: XR of the lumbosacral spine. Views: 4 or 5 views. COMPARISON: CT chest abd pel w con* 04/04/2021 8:32 PM FINDINGS: Bones/joints: There is moderate lumbar scoliosis convex to the left. No fracture or other acute abnormalities are seen. Degenerative changes are present with disc space narrowing and osteophytes predominantly at T12-L1 and L2-L3. Soft tissues: Unremarkable. XR/XR lumbar spine min 4V [id number] IMPRESSION: Moderate scoliosis with chronic degenerative disease especially at T12-L1 and L2-L3.
== END 2021-09-04 12:03 | disposition home or self-care (01) ==
PROVIDERS: PCP Internal Medicine; Visit Provider Nurse Practitioner Family
DX: M54.9 Dorsalgia, unspecified (principal); M41.9 Scoliosis, unspecified; M47.815 Spondylosis without myelopathy or radiculopathy, thoracolumbar region
CPT/HCPCS: 72110

== ENCOUNTER 2021-09-23 15:55 | Outpatient (CLI) | payer MEDICARE, BC, SELFPAY ==
--- NOTE | 2021-09-23 17:48 | MR_ITS ---
WS: [id number] MRI LUMBAR SPINE NONCONTRAST HISTORY: BACK PAIN ,MULTIPLE SCLEROSIS, low back pain for 6 years. Recent injury. COMPARISON: None available. TECHNIQUE: Sagittal and axial multisequence imaging is submitted. Central disc protrusion at C6-7 with minimal contact on the ventral cervical cord. LEFT curvature of the lumbar spine. No fracture or marrow edema. Mild disc space narrowing and desiccation throughout. Endplate osteophyt es at all levels. Benign hemangioma at L2. Conus terminates normally at L1-2 disc level. L1-L2: Mild diffuse annular disc bulging with a shallow central protrusion. No high-grade stenosis. D isc is slightly asymmetric to the RIGHT in part this is due to the scoliosis and ligamentum flavum an d facet arthritis. L2-L3: Mild annular disc bulging and osteophytic ridging. Facet and ligamentum flavum arthritis. Very mild LEFT subarticular recess encroachment but no stenosis. L3-L4: Mild annular disc bulging with a central disc protrusion. Moderate ligamentum flavum hypertrop hy and facet arthritis. Small central disc protrusion. Mild central and bilateral subarticular recess stenosis. Slightly greater encroachment upon the RIGHT traversing L4 nerve root. Moderate-sized edwardo lar fissure and disc protrusion RIGHT foramen. L4-L5: Mild annular disc bulging and mild facet arthritis. Very mild foraminal and central stenosis. Very slight encroachment upon the subarticular recesses bilaterally. L5-S1: Mild facet arthritis. Very mild narrowing of the LEFT foramen. No stenosis. Suspect fluid in t he facet joints bilateral. Paravertebral soft tissues are normal. MR/MR lumbar spine wo con* [id number] IMPRESSION: 1. Mild levoscoliosis lumbar spine. 2. RIGHT central shallow disc protrusion at L1-2. 3. Small central disc protrusion at L3-4 with mild bilateral subarticular rece ss stenosis, RIGHT greater than LEFT. 4. RIGHT foraminal disc protrusion at L3-4 with annular fissure causing mild f oraminal stenosis. 5. Bilateral mild subarticular recess and foraminal stenosis at L4-5 due to di sc, facet disease and osteophytosis. Very mild encroachment upon the L5 fracisco ing nerve roots. 6. Mild LEFT foraminal narrowing at L5-S1.
== END 2021-09-23 15:56 | disposition home or self-care (01) ==
LOC: RAD 15:58
PROVIDERS: PCP Internal Medicine; Visit Provider Internal Medicine
DX: M51.26 Other intervertebral disc displacement, lumbar region (principal); M48.061 Spinal stenosis, lumbar region without neurogenic claudication
CPT/HCPCS: 72148

== ENCOUNTER → 2021-09-24 08:43 | Outpatient (BNVA) | payer MEDICARE, BC, SELFPAY | PROVIDERS: PCP Internal Medicine; Referring Provider Nurse Practitioner Family; Visit Provider Orthopaedic Surgery | DX: M48.061 Spinal stenosis, lumbar region without neurogenic claudication (principal); M41.9 Scoliosis, unspecified | CPT/HCPCS: 99203 ==

== ENCOUNTER → 2021-10-09 09:50 | Outpatient (BNVA) | payer MEDICARE, BC, SELFPAY | PROVIDERS: PCP Internal Medicine; Visit Provider Surgery | DX: Z12.11 Encounter for screening for malignant neoplasm of colon (principal); Z86.010 Personal history of colon polyps | CPT/HCPCS: 99202 ==

== ENCOUNTER 2021-10-21 12:38 | Outpatient (CLI) | payer MEDICARE, BC, SELFPAY ==
--- NOTE | 2021-10-21 13:14 | MM_ITS ---
WS: [id number] Bilateral screening 3D tomosynthesis digital mammogram, 10/21/2021 Clinical Data: SCREEN Comparison: 06/30/2020, 02/15/2019. Findings: The breast parenchymal pattern shows heterogeneous density. No spiculated masses or clustered calcif ications are seen. There are no secondary signs of carcinoma. MM/[place] [id number] Impression: 1. Negative bilateral mammogram unchanged. 2. Recommend annual screening mammograms. BIRADS: 1-Negative FOLLOW UP: 1 Year Follow-up The CAD specifications checker was used.
== END 2021-10-21 12:39 | disposition home or self-care (01) ==
LOC: RAD 12:40
PROVIDERS: PCP Internal Medicine; Visit Provider Internal Medicine
DX: Z12.31 Encounter for screening mammogram for malignant neoplasm of breast (principal)
CPT/HCPCS: 77063; 77067

== ENCOUNTER → 2021-11-12 08:13 | Outpatient (BNVA) | payer MEDICARE, BC, SELFPAY | PROVIDERS: PCP Internal Medicine; Visit Provider Orthopaedic Surgery | DX: M41.9 Scoliosis, unspecified (principal); M54.6 Pain in thoracic spine; M54.50 Low back pain, unspecified | CPT/HCPCS: 99213; 99214 ==

== ENCOUNTER → 2022-01-20 08:24 | Outpatient (BNVA) | payer MEDICARE, BC, SELFPAY | PROVIDERS: PCP Internal Medicine; Visit Provider Anesthesiology Pain Medicine | DX: G89.29 Other chronic pain (principal); M47.816 Spondylosis without myelopathy or radiculopathy, lumbar region; M51.36 Other intervertebral disc degeneration, lumbar region; M47.814 Spondylosis without myelopathy or radiculopathy, thoracic region; M41.9 Scoliosis, unspecified; G35 Multiple sclerosis | CPT/HCPCS: 99204; 99205 ==

== ENCOUNTER → 2022-02-03 14:20 | Outpatient (BNVA) | payer MEDICARE, BC, SELFPAY | PROVIDERS: PCP Internal Medicine; Visit Provider Anesthesiology Pain Medicine | DX: G89.29 Other chronic pain (principal); M47.816 Spondylosis without myelopathy or radiculopathy, lumbar region | CPT/HCPCS: 64493; 64494; 64495; J1030 ==

== ENCOUNTER 2022-02-12 09:38 | Day surgery (SDC) | payer MEDICARE, BC, SELFPAY ==
[2022-02-10 13:43] VITALS: BMI 29.9
[2022-02-12 09:55] VITALS: BP 145/73; PULSE 76; RESP 16; TEMP 36.2; O2SAT 99
[2022-02-12] MEDS: sodium chloride 0.9% 1,000 ML 30 ML IV (10:04)
--- NOTE | 2022-02-12 10:50 | P.HP_ITS ---
Providers/Chief Complaint Primary Care Provider: Stephanie Bush MD Chief Complaint: personal history of colonic polyps History of Present Illness Linda Richardson is a 66 year old female here for colonoscopy Medications/Allergies Home Medications Medication Instructions Recorded Confirmed Last Taken Type clonazepam 0.5 mg tablet 0.5 mg PO BID 02/21/20 02/10/22 02/11/22 History lacosamide 150 mg tablet (Vimpat) 150 mg PO BID 02/21/20 02/10/22 02/11/22 History primidone 50 mg tablet 100 mg PO BEDTIME 02/21/20 02/10/22 02/11/22 History sertraline 100 mg tablet 100 mg PO BID 02/21/20 02/10/22 02/11/22 History hydroxychloroquine 200 mg tablet 200 mg PO .ONCE A WEEK rx filled 04/24/21 02/10/22 02/11/22 History on 12/23/20 90d/s for 200mg daily-pts states he thinks the pt just takes once a week ketoconazole 2 % shampoo 1 applic topical . DIRECTED 04/24/21 02/10/22 02/11/22 History levothyroxine 112 mcg tablet 112 mcg PO DAILY 04/24/21 02/10/22 02/11/22 History (Synthroid) tapentadol 50 mg tablet,extended 50 mg PO BID 04/24/21 02/10/22 02/11/22 History release,12 hr (Nucynta ER) triazolam 0.25 mg tablet 0.5 mg PO BEDTIME 04/24/21 02/10/22 02/11/22 History baclofen 20 mg tablet 10 mg PO TID@08,13,16 #0 tabs 04/25/21 02/10/22 02/12/22 Rx cariprazine 1.5 mg capsule 1.5 mg PO DAILY 07/14/21 02/10/22 02/11/22 History (Vraylar) cephalexin 500 mg tablet 500 mg PO ONCE PRN o 10/09/21 02/10/22 02/11/22 History dronabinol 5 mg capsule 5 mg PO TID 10/09/21 02/10/22 02/11/22 History Allergies Allergy/AdvReac Type Severity Reaction Status Date / Time No Known Allergies Allergy Verified 02/10/22 13:35 PFSH Acute PFSH: Medical History (Updated 02/12/22 @ 10:51 by Uriel Guevara DO) Exertional rhabdomyolysis History of molar terminated 09/06/92 Multiple sclerosis Multiple sclerosis Slurred speech Surgical History (Updated 02/12/22 @ 10:51 by Uriel Guevara DO) H/O: hysterectomy History of bladder surgery History of removal of skin mole Hx of bladder repair surgery 02/2017 bladder tack 01/06/20 bladder sling/repairs to urethra/rectrum Hx of cholecystectomy Hx of colonoscopy 12/01/12 polyp removed 05/16/18 polyp removed Hx of eye surgery 09/08/21 09/22/21 cataract removal Hx of hysterectomy 04/08/01 Hx of tubal ligation 01/07/94 Previous back surgery Social History Smoking and tobacco status: never smoked Vitals/I&O/Wt Last Vital Signs Temp 97.1 F L 02/12/22 09:55 Pulse 76 02/12/22 09:55 Resp 16 02/12/22 09:55 BP 145/73 02/12/22 09:55 Pulse Ox 99 02/12/22 09:55 O2 Del Method 02/12/22 09:55 Weight last 48 hrs Weight 180 lb A&P Assessment and plan (1) History of colon polyps: Plan Colonoscopy Attestations Medical Necessity Statement*: Home Coding Level of Care Code Acute Investment Counselor for Chg Fwd Diagnoses History of colon polyps Z86.010
--- NOTE | 2022-02-12 11:06 | ANES.PREANE2 ---
Pre-Anesthetic Assessment Height/Weight: Height 1.65 m Weight 81.647 kg Temp Pulse Resp BP Pulse Ox O2 Del Method 97.1 F L 76 16 145/73 99 02/12/22 09:55 02/12/22 09:55 02/12/22 09:55 02/12/22 09:55 02/12/22 09:55 02/12/22 09:55 Preop Diagnosis: H/O colonic polyps Operation Date: 02/12/22 11:00 Proposed Procedures p Colonoscopy 20211,Z86.010(Not Applicable) - Uriel Guevara DO Familial anesthetic complications: PONV Was Beta Eren taken within 24 hours: N/A Was Clonidine taken within 24 hours: N/A Last intake: Intake Last Liquid Date 02/11/22 Last Liquid Time 21:00 Last Solid Date 02/10/22 Last Solid Time 20:00 Social No alcohol and No tobacco Exam alert and oriented x 3 Airway Submandibular: within normal limits Cervical ROM: within normal limits Mallampati: Class II Dentition: full History/ROS No significant history except as noted Pulmonary None reported CV/HEM Hypertension None reported Hepatic None reported GI None reported Metabolic Thyroid Disease [facility] [place] [place]- on seizure medication for this, has passing out episodes occasionally- last: Mar 2021 Neuropsych None reported Anesthetic Plan ASA status: 3 Anesthesia: Anesthesia Evaluation and MAC Risk of > 500 ml blood loss (7ml/kg in children): No Medications/Allergies Home Medications Medication Instructions Recorded Confirmed Last Taken Type clonazepam 0.5 mg tablet 0.5 mg PO BID 02/21/20 02/10/22 02/11/22 History lacosamide 150 mg tablet (Vimpat) 150 mg PO BID 02/21/20 02/10/22 02/11/22 History primidone 50 mg tablet 100 mg PO BEDTIME 02/21/20 02/10/22 02/11/22 History sertraline 100 mg tablet 100 mg PO BID 02/21/20 02/10/22 02/11/22 History hydroxychloroquine 200 mg tablet 200 mg PO .ONCE A WEEK rx filled 04/24/21 02/10/22 02/11/22 History on 12/23/20 90d/s for 200mg daily-pts states he thinks the pt just takes once a week ketoconazole 2 % shampoo 1 applic topical . DIRECTED 04/24/21 02/10/22 02/11/22 History levothyroxine 112 mcg tablet 112 mcg PO DAILY 04/24/21 02/10/22 02/11/22 History (Synthroid) tapentadol 50 mg tablet,extended 50 mg PO BID 04/24/21 02/10/22 02/11/22 History release,12 hr (Nucynta ER) triazolam 0.25 mg tablet 0.5 mg PO BEDTIME 04/24/21 02/10/22 02/11/22 History baclofen 20 mg tablet 10 mg PO TID@08,13,16 #0 tabs 04/25/21 02/10/22 02/12/22 Rx cariprazine 1.5 mg capsule 1.5 mg PO DAILY 07/14/21 02/10/22 02/11/22 History (Vraylar) cephalexin 500 mg tablet 500 mg PO ONCE PRN o 10/09/21 02/10/22 02/11/22 History dronabinol 5 mg capsule 5 mg PO TID 10/09/21 02/10/22 02/11/22 History Allergies Allergy/AdvReac Type Severity Reaction Status Date / Time No Known Allergies Allergy Verified 02/10/22 13:35 Current Medications Generic Name Dose Route Start Last Admin Trade Name Freq PRN Reason Stop Dose Admin Sodium Chloride 1,000 mls @ 30 mls/hr 02/12/22 09:45 02/12/22 10:04 Sodium Chloride 0.9% IV 02/13/22 09:44 30 mls/hr .Q24H CLEO Administration PFSH Anesthesia Medical History (Updated 02/12/22 @ 10:51 by Uriel Guevara DO) Exertional rhabdomyolysis History of molar terminated 09/06/92 Multiple sclerosis Multiple sclerosis Slurred speech Surgical History (Updated 02/12/22 @ 10:51 by Uriel Guevara DO) H/O: hysterectomy History of bladder surgery History of removal of skin mole Hx of bladder repair surgery 02/2017 bladder tack 01/06/20 bladder sling/repairs to urethra/rectrum Hx of cholecystectomy Hx of colonoscopy 12/01/12 polyp removed 05/16/18 polyp removed Hx of eye surgery 09/08/21 09/22/21 cataract removal Hx of hysterectomy 04/08/01 Hx of tubal ligation 01/07/94 Previous back surgery Social History Smoking and tobacco status: never smoked Data Anesthesia Cardiac Studies: No Data to Display
[2022-02-12 11:40] VITALS: BP 120/71; PULSE 72; RESP 18; TEMP 36.6; O2SAT 94
--- NOTE | 2022-02-12 11:42 | ANE.PACU2 ---
Inpatient post-anesthesia follow up: Airway intact: Yes Vital signs: Temperature 97.9 F Pulse Rate 72 Respiratory Rate 18 Blood Pressure 120/71 Pulse Oximetry 94 Oxygen Delivery Me thod Room Air Oxygen Flow Rate Fraction of Inspir ed Oxygen Hydration adequate: Yes Nausea and vomiting: No Pain level: 1 Mental status: Baseline
[2022-02-12 11:43] VITALS: BP 114/80; PULSE 71; RESP 18; O2SAT 95
[2022-02-12 11:53] VITALS: BP 134/82; PULSE 66; RESP 18; O2SAT 95
== END 2022-02-12 11:55 | disposition home or self-care (01) ==
PROVIDERS: PCP Internal Medicine; Visit Provider Surgery
PROC: 0DJD8ZZ Inspection of Lower Intestinal Tract, Via Natural or Artificial Opening Endoscopic (ICD-10-PCS; CPT 45378; principal; 2022-02-12 11:00)
DX: Z86.010 Personal history of colon polyps (principal); I10 Essential (primary) hypertension
CPT/HCPCS: G0121; J2704; J7030

== ENCOUNTER → 2022-02-16 10:16 | Outpatient (BNVA) | payer MEDICARE, BC, SELFPAY | PROVIDERS: PCP Internal Medicine; Visit Provider Anesthesiology Pain Medicine | DX: G89.29 Other chronic pain (principal); M47.816 Spondylosis without myelopathy or radiculopathy, lumbar region; M51.36 Other intervertebral disc degeneration, lumbar region; M47.814 Spondylosis without myelopathy or radiculopathy, thoracic region; M41.9 Scoliosis, unspecified; G35 Multiple sclerosis; M79.604 Pain in right leg; M79.605 Pain in left leg | CPT/HCPCS: 99214 ==

== ENCOUNTER → 2022-03-03 09:47 | Outpatient (BNVA) | payer MEDICARE, BC, SELFPAY | PROVIDERS: PCP Internal Medicine; Visit Provider Anesthesiology Pain Medicine | DX: G89.29 Other chronic pain (principal); M47.816 Spondylosis without myelopathy or radiculopathy, lumbar region | CPT/HCPCS: 64635; 64636 ==

== ENCOUNTER → 2022-03-17 09:16 | Outpatient (BNVA) | payer MEDICARE, BC, SELFPAY | PROVIDERS: PCP Internal Medicine; Visit Provider Anesthesiology Pain Medicine | DX: G89.29 Other chronic pain (principal); M47.816 Spondylosis without myelopathy or radiculopathy, lumbar region; M51.36 Other intervertebral disc degeneration, lumbar region; M47.814 Spondylosis without myelopathy or radiculopathy, thoracic region; M41.9 Scoliosis, unspecified; G35 Multiple sclerosis; M79.604 Pain in right leg; M79.605 Pain in left leg | CPT/HCPCS: 99213; 99214 ==

== ENCOUNTER 2022-04-21 09:02 | Outpatient (CLI) | payer MEDICARE, BC, SELFPAY ==
[2022-04-21 11:12] LABS: Add Urine Microscopic? YES; Bilirubin Urine Neg (Negative); Blood Urine 2+ (Negative); Glucose Urine UA Norm (Normal); Ketones Urine Negative (Negative); Leukocyte Esterase Urine Negative (Negative); Nitrate Urine Negative (Negative); Protein Urine Neg (Negative); Urine Appearance Hazy (CLEAR); Urine Color Yellow (Yellow); Urobilinogen Urine Neg (Negative); pH Urine 6 (5-7)
[2022-04-21 11:16] LABS: Add Urine Culture? No; RBC Urine 0-4 /hpf (0-2); Squamous Epithelial Cell Urine 0-4 /hpf (0-5)
== END 2022-04-21 09:03 | disposition home or self-care (01) ==
PROVIDERS: PCP Internal Medicine; Visit Provider Internal Medicine
DX: R30.0 Dysuria (principal)
CPT/HCPCS: 81001

== ENCOUNTER 2022-04-23 09:30 | Outpatient (RCR) | payer MEDICARE, BC, SELFPAY ==
[2022-04-21 09:38] VITALS: BMI 29.6
[2022-04-21 09:40] VITALS: BP 134/81; PULSE 95; RESP 18; TEMP 36.3; O2SAT 98
[2022-04-22 09:37] VITALS: BP 149/82; PULSE 83; RESP 18; TEMP 36.6; O2SAT 96
[2022-04-23 09:31] VITALS: BP 136/84; PULSE 82; RESP 18; TEMP 36.4; O2SAT 99
== END 2022-05-08 23:59 | disposition home or self-care (01) ==
LOC: GILAB 09:30
PROVIDERS: PCP Internal Medicine; Visit Provider Internal Medicine
DX: G35 Multiple sclerosis (principal)
CPT/HCPCS: 96365; J2930; J7050

== ENCOUNTER → 2022-06-17 12:48 | Outpatient (BNVA) | payer MEDICARE, BC, SELFPAY | PROVIDERS: PCP Internal Medicine; Visit Provider Anesthesiology Pain Medicine | DX: G89.29 Other chronic pain (principal); M47.816 Spondylosis without myelopathy or radiculopathy, lumbar region; M51.36 Other intervertebral disc degeneration, lumbar region; M47.814 Spondylosis without myelopathy or radiculopathy, thoracic region; M41.9 Scoliosis, unspecified | CPT/HCPCS: 99212 ==

== ENCOUNTER 2022-09-17 09:30 | Oncology outpatient (recurring) (ONCR) | payer MEDICARE, BC, SELFPAY ==
[2022-09-15 08:50] VITALS: BP 134/81; PULSE 78; RESP 18; TEMP 37.1; O2SAT 94
[2022-09-15 12:20] VITALS: BP 150/83; PULSE 84; RESP 18; TEMP 36.5; O2SAT 96
[2022-09-16 09:18] VITALS: BP 145/83; PULSE 72; RESP 18; TEMP 36.3; O2SAT 98
[2022-09-17 11:45] VITALS: BP 144/83; PULSE 69; RESP 18; TEMP 36.4; O2SAT 98
== END 2022-10-06 23:59 | disposition home or self-care (01) ==
PROVIDERS: PCP Internal Medicine; Visit Provider Internal Medicine
DX: G35 Multiple sclerosis (principal)
CPT/HCPCS: 72110; 96365; 96366; 99214; J2930; J7050

== ENCOUNTER → 2022-09-22 09:30 | Outpatient (BNVA) | payer MEDICARE, BC, SELFPAY | PROVIDERS: PCP Internal Medicine; Visit Provider Family Medicine | DX: Z01.818 Encounter for other preprocedural examination (principal) | CPT/HCPCS: 80048; 85025 ==

== ENCOUNTER → 2022-09-30 10:28 | Outpatient (BNVA) | payer MEDICARE, BC, SELFPAY | PROVIDERS: PCP Internal Medicine; Visit Provider Orthopaedic Surgery | DX: M48.062 Spinal stenosis, lumbar region with neurogenic claudication (principal) | CPT/HCPCS: 99213 ==

== ENCOUNTER 2022-10-06 09:32 | Day surgery (SDC) | payer MEDICARE, BC, SELFPAY ==
[2022-09-24 10:46] VITALS: BMI 29.6
--- NOTE | 2022-09-24 11:12 | P.ANESASSM_ITS ---
Pre-Anesthetic Assessment Height/Weight: Height 1.65 m Weight 80.739 kg Operation Date: 10/06/22 12:50 Proposed Procedures p Lumbar Spine Decompression L3/4 L4/5 Right: 44743,73857,M54. 9,G89.29,M48.062(Right) - Gideon Santana DO Familial anesthetic complications: Nausea Social No alcohol and No tobacco Exam alert, oriented x 3, clear to auscultation bilaterally and regular rate & rhythm Airway Dentition: full Pulmonary Sleep Apnea Metabolic Thyroid Disease [facility] [place] multiple sclerosis - Relapse last occurred week. Symptoms are usually confusion and losing consciousness and asking same question over and over again. Informed patient that general anesthesia can lead to MS exacerbation. Will avoid be hyperthermia. Anesthetic Plan ASA status: 3 Anesthesia: General Risk of > 500 ml blood loss (7ml/kg in children): No Medications/Allergies Home Medications Medication Instructions Recorded Confirmed Last Taken Type clonazepam 0.5 mg tablet 0.5 mg PO BID 02/21/20 09/24/22 09/24/22 History lacosamide 150 mg tablet (Vimpat) 150 mg PO BID 02/21/20 09/24/22 09/24/22 History primidone 50 mg tablet 100 mg PO BEDTIME 02/21/20 09/24/22 09/24/22 History sertraline 100 mg tablet 100 mg PO BID 02/21/20 09/24/22 09/24/22 History levothyroxine 112 mcg tablet 112 mcg PO DAILY 04/24/21 09/24/22 09/24/22 History (Synthroid) tapentadol 50 mg tablet,extended 50 mg PO BID 04/24/21 09/24/22 09/24/22 History release,12 hr (Nucynta ER) triazolam 0.25 mg tablet 0.5 mg PO BEDTIME 04/24/21 09/24/22 09/24/22 History baclofen 20 mg tablet 10 mg PO TID@08,13,16 #0 tabs 04/25/21 09/24/22 09/24/22 Rx cariprazine 1.5 mg capsule 1.5 mg PO DAILY 07/14/21 09/24/22 09/24/22 History (Vraylar) dronabinol 5 mg capsule 5 mg PO TID 10/09/21 09/24/22 09/24/22 History Lmfolate Ca 6 mg-acetylcys 600 6 - 600 tab PO DAILY 09/22/22 09/24/22 09/24/22 History mg-mB12 2 mg-algal oil 90.314 mg tablet (Cerefolin NAC (algal oil)) ibuprofen 600 mg tablet 600 mg PO Q8H PRN pain] 09/22/22 09/24/22 09/16/22 History lidocaine 5 % topical patch 1 patch topical DAILY 09/22/22 09/24/22 09/24/22 History lisdexamfetamine 30 mg capsule 30 mg PO DAILY 09/22/22 09/24/22 09/24/22 History (Vyvanse) Allergies Allergy/AdvReac Type Severity Reaction Status Date / Time No Known Allergies Allergy Verified 09/24/22 10:40 PFSH Anesthesia Medical History Exertional rhabdomyolysis History of colon polyps History of molar terminated 09/06/92 Multiple sclerosis Multiple sclerosis Slurred speech Surgical History H/O: hysterectomy History of bladder surgery History of removal of skin mole Hx of bladder repair surgery 02/2017 bladder tack 01/06/20 bladder sling/repairs to urethra/rectrum Hx of cholecystectomy Hx of colonoscopy 12/01/12 polyp removed 05/16/18 polyp removed Hx of eye surgery 09/08/21 09/22/21 cataract removal Hx of hysterectomy 04/08/01 Hx of tubal ligation 01/07/94 Previous back surgery Social History Smoking and tobacco status: never smoked Data Anesthesia Cardiac Studies: No Data to Display
[2022-10-06] VITALS (14 sets, daily range): BP systolic 132–176; BP diastolic 68–96; PULSE 67–101; RESP 15–18; TEMP 36.3–36.8; O2SAT 95–100
--- NOTE | 2022-10-06 | XR_ITS ---
WS: [id number] Exam: XR lumbar spine 1V [id number] Date/Time of Exam: 10/06/2022 12:00 AM Reason For Exam: L3/4 L4/5 decompression Anterior posterior intraoperative C-arm images of the lumbar spine are obtained for surgical planning .
[2022-10-06] MEDS: sodium chloride 0.9% 1,000 ML 100 ML IV (09:55)
[2022-10-06] MEDS: sodium chloride 0.9% 1,000 ML 30 ML IV (10:18)
--- NOTE | 2022-10-06 10:30 | P.ANESUD_ITS ---
Pre-Anesthetic Update Pre-Anesthetic Assessment: Date of Surgery/Procedure: 10/06/22 Preop Vangie gnosis: Lumbar stenosis with neurogenic claudication Proposed Procedure: Operation Date: 10/06/22 11:20 Proposed Procedures p Lumbar Spine Decompression L3/4 L4/5 Right: 57829,03784,M54.9,G89.29,M48.062(Right) - Gideon Santana, DO Any changes to Pre-Anesthetic Assessment?: No Last Intake: Intake Last Liquid Date 10/05/22 Last Liquid Time 19:00 Last Solid Date 10/05/22 Last Solid Time 19:00 Vitals: Temperature 97.3 F L 10/06/22 09:55 Temperature Source Temporal Artery S can 10/06/22 09:55 Pulse Rate 67 10/06/22 09:55 Respiratory Rate 16 10/06/22 09:55 Blood Pressure 132/86 10/06/22 09:55 Blood Pressure Beth n 101 10/06/22 09:55 Pulse Oximetry 98 10/06/22 09:55 Oxygen Delivery Me thod Room Air 10/06/22 09:55 Exam: Pre-Anes Outpt Exam: alert, oriented x 3, clear to auscultation martin aterally and regular rate & rhythm Cardiac Studies: No Data to Display
--- NOTE | 2022-10-06 11:21 | W.PM.OPSUD ---
Surgery/Procedure H&P Update DATE OF PROCEDURE: October 06, 2022 DATE H&P PERFORMED: 09/16/22 H&P UPDATE INFORMATION: I have reviewed H&P completed within last 30 days, I have examined patient prior to procedure and No changes to prior documentation PREOP DIAGNOSIS: Lumbar stenosis with neurogenic claudication PLANNED PROCEDURE: Operation Date: 10/06/22 11:20 Proposed Procedures p Lumbar Spine Decompression L3/4 L4/5 Right: [id number],91037,M54.9,G89.29,M48.062(Right) - Gideon Santana DO
[2022-10-06] MEDS: ceFAZolin 2,000 MG in sodium chloride 0.9% (plus) 50 ML 100 MG IV (11:43)
[2022-10-06] MEDS: lidocaine-epi 1% 20 mL INJ INJECTION (12:30)
--- NOTE | 2022-10-06 13:04 | PM.OP ---
Operative Report Date of procedure: October 06, 2022 Pre-op diagnosis: Preop Diagnosis Lumbar stenosis with neurogenic claudication Post-op diagnosis: same Procedure done: 1. L3-4 laminectomy with partial facetectomy 2. L4-5 laminectomy with partial facetectomy Surgeon: Gideon Santana Environmental Health Safety Manager: Randal Ramirez Environmental Health Safety Manager: The surgical instrument maker, Randal Ramirez, PAC was needed for his expertise under the microscope. He was important and necessary throughout the procedure to complete in a safe and timely manner. He assisted with patient positioning prepping and draping tissue retraction suctioning of the operative field protection of the dural sac and tissue closure Procedure: 1. L3-4 laminectomy with partial facetectomy 2. L4-5 laminectomy with partial facetectomy Patient is brought to the operative suite. After undergoing anesthesia they are placed in the prone position. All areas of impingement are well padded. Patient is then prepped and draped in the normal sterile fashion. A skin incision is made over the L3/4 level. This is confirmed under c-arm guidance. A series of dilators are passed and the tubular retractor is docked on the L3 lamina. A bovie is used to clear the soft tissue off the lamina and the L 3/4 facet joint. A high speed rené is then used to perform the laminectomy and take down the medial aspect of the L 3/4 facet joint. A kerrison rongeure was then used to take down the remaining lamina and smooth the edge of the laminectomy up to the point where the ligamentum flavum attaches. Attention was then brought to the medial aspect of the facet joint. The remaining medial aspect of the superior and inferior aspect of the facet joint were taken down with the kerrison from the pedicle of L3 to L 4. The facet joint had significant hypertrophy. Attention was then brought to the Ligamentum Flavum. The ligament was taken down from the lamina of L3 to L4 and out medially to the remaining facet joint. The ligament was thick. The dura was then exposed. The dura was in good repair. The L3 nerve was then traced with a curette out the L3/4 foramen and found to be adequately decompressed. The L4 nerve was traced with a curette around the L4 pedicle. The lateral recess was opened with a kerrison helping to further decompress the L4 nerve. Wound is then irrigated copiously with saline and surgiflo is used to stop any bleeding. The tubular retractor is removed and the A skin incision is made over the L4/5 level. This is confirmed under c-arm guidance. A series of dilators are passed and the tubular retractor is docked on the L4 lamina. A bovie is used to clear the soft tissue off the lamina and the L 4/5 facet joint. A high speed rené is then used to perform the laminectomy and take down the medial aspect of the L 4/5 facet joint. A kerrison rongeure was then used to take down the remaining lamina and smooth the edge of the laminectomy up to the point where the ligamentum flavum attaches. Attention was then brought to the medial aspect of the facet joint. The remaining medial aspect of the superior and inferior aspect of the facet joint were taken down with the kerrison from the pedicle of L4 to L 5. The facet joint had significant hypertrophy. Attention was then brought to the Ligamentum Flavum. The ligament was taken down from the lamina of L4 to L5 and out medially to the remaining facet joint. The ligament was thick. The dura was then exposed. The dura was in good repair. The L4 nerve was then traced with a curette out the L4/5 foramen and found to be adequately decompressed. The L5 nerve was traced with a curette around the L5 pedicle. The lateral recess was opened with a kerrison helping to further decompress the L5 nerve. Wound is then irrigated copiously with saline and surgiflo is used to stop any bleeding. The tubular retractor is removed and the wound is closed with vicryl and monocryl suture. Glue is then used to protect the wound. A sterile dressing is then placed. Patient was then placed in the supine position and transferred to the PACU in stable condition.
[2022-10-06] MEDS: fentaNYL 50 mcg/mL INJ 2mL IVP (13:14)
[2022-10-06] MEDS: ondansetron 2 mg/ML SDV 2 mL 4 MG IVP (13:20)
[2022-10-06] MEDS: HYDROmorphone 1 mg/mL INJ 1 mL 0.5 MG IVP (13:26)
[2022-10-06] MEDS: HYDROcodone-acetaminophen 5-325 mg Tablet 1 TAB PO (14:03)
== END 2022-10-06 15:05 | disposition home or self-care (01) ==
PROVIDERS: PCP Internal Medicine; Visit Provider Orthopaedic Surgery
PROC: (CPT 63005; principal; 2022-10-06 11:10)
DX: M48.062 Spinal stenosis, lumbar region with neurogenic claudication (principal); G47.30 Sleep apnea, unspecified; E03.9 Hypothyroidism, unspecified; G35 Multiple sclerosis
CPT/HCPCS: 63047; 63048; 72020; 76000; J0690; J1170; J2405; J2704; J2710; J3010; J3490; J7030

== ENCOUNTER → 2022-10-21 07:55 | Outpatient (BNVA) | payer MEDICARE, SELFPAY | PROVIDERS: PCP Internal Medicine; Visit Provider Orthopaedic Surgery | DX: Z48.89 Encounter for other specified surgical aftercare (principal) | CPT/HCPCS: 99024 ==

== ENCOUNTER 2022-11-18 09:08 | Outpatient (CLI) | payer MEDICARE, BC, SELFPAY ==
--- NOTE | 2022-11-18 09:21 | MM_ITS ---
WS: [id number] BILATERAL 3D TOMOSYNTHESIS DIGITAL SCREENING MAMMOGRAPHY WITH CAD CLINICAL INFORMATION: SCREENING HISTORY: Screening mammogram. No current complaints. COMPARISON: 2021 TECHNIQUE: Bilateral CC and MLO views. FINDINGS: The breasts are composed of heterogeneous fibroglandular density tissue, which can limit the detectio n of small underlying mass lesions. No suspicious mass, asymmetry, calcifications, or architectural d istortion. No evidence of malignancy. Punctate and lucent centered calcifications. MM/[place] [id number] IMPRESSION: BI-RADS: 2-Benign FOLLOW UP: 1 Year Follow-up Recommend return to annual screening mammography.
== END 2022-11-18 09:09 | disposition home or self-care (01) ==
LOC: RAD 09:10
PROVIDERS: PCP Internal Medicine; Visit Provider Internal Medicine
DX: Z12.31 Encounter for screening mammogram for malignant neoplasm of breast (principal); Z48.89 Encounter for other specified surgical aftercare
CPT/HCPCS: 77063; 77067; 99024

== ENCOUNTER → 2022-12-30 08:48 | Outpatient (BNVA) | payer MEDICARE, BC, SELFPAY | PROVIDERS: PCP Internal Medicine; Visit Provider Orthopaedic Surgery | DX: Z48.89 Encounter for other specified surgical aftercare; M54.16 Radiculopathy, lumbar region; M41.9 Scoliosis, unspecified; M47.816 Spondylosis without myelopathy or radiculopathy, lumbar region; Z98.890 Other specified postprocedural states | CPT/HCPCS: 72100; 99024 ==

== ENCOUNTER → 2023-02-01 10:13 | Outpatient (BNVA) | payer MEDICARE, BC, SELFPAY | PROVIDERS: PCP Internal Medicine; Visit Provider Anesthesiology Pain Medicine | DX: M48.062 Spinal stenosis, lumbar region with neurogenic claudication (principal); G89.29 Other chronic pain; M47.816 Spondylosis without myelopathy or radiculopathy, lumbar region; M51.36 Other intervertebral disc degeneration, lumbar region; M47.814 Spondylosis without myelopathy or radiculopathy, thoracic region; M41.9 Scoliosis, unspecified; G35 Multiple sclerosis | CPT/HCPCS: 99214 ==

== ENCOUNTER → 2023-02-09 14:25 | Outpatient (BNVA) | payer MEDICARE, BC, SELFPAY | PROVIDERS: PCP Internal Medicine; Visit Provider Anesthesiology Pain Medicine | DX: M54.16 Radiculopathy, lumbar region (principal); M48.062 Spinal stenosis, lumbar region with neurogenic claudication | CPT/HCPCS: 64483; 64484; J1100; J3490 ==

== ENCOUNTER → 2023-02-15 08:03 | Outpatient (BNVA) | payer MEDICARE, BC, SELFPAY | PROVIDERS: PCP Internal Medicine; Visit Provider Orthopaedic Surgery | DX: Z47.89 Encounter for other orthopedic aftercare (principal); M53.3 Sacrococcygeal disorders, not elsewhere classified | CPT/HCPCS: 99203 ==

== ENCOUNTER → 2023-02-23 08:47 | Outpatient (BNVA) | payer MEDICARE, BC, SELFPAY | PROVIDERS: PCP Internal Medicine; Visit Provider Anesthesiology Pain Medicine | DX: M79.18 Myalgia, other site (principal); G89.29 Other chronic pain; M48.062 Spinal stenosis, lumbar region with neurogenic claudication; M47.816 Spondylosis without myelopathy or radiculopathy, lumbar region; M51.36 Other intervertebral disc degeneration, lumbar region; M47.814 Spondylosis without myelopathy or radiculopathy, thoracic region; M41.9 Scoliosis, unspecified; G35 Multiple sclerosis | CPT/HCPCS: 20553; 99214; J1030; J3490 ==

== ENCOUNTER 2023-04-22 10:29 | Oncology outpatient (recurring) (ONCR) | payer MEDICARE, BC, SELFPAY ==
[2023-04-20 11:00] VITALS: BP 124/78; PULSE 75; RESP 18; TEMP 36.6; O2SAT 94
[2023-04-20 12:48] VITALS: BP 128/82; PULSE 79; RESP 18; TEMP 36.8; O2SAT 94
[2023-04-21 10:53] VITALS: BP 129/79; PULSE 69; TEMP 36.5; O2SAT 99
[2023-04-21 13:40] VITALS: BP 138/82; PULSE 81; RESP 16; TEMP 36.8; O2SAT 98
[2023-04-22 10:40] VITALS: BP 158/84; PULSE 75; RESP 16; TEMP 36.2; O2SAT 99
== END 2023-05-08 23:59 | disposition home or self-care (01) ==
PROVIDERS: PCP Internal Medicine; Visit Provider Internal Medicine
DX: G35 Multiple sclerosis
CPT/HCPCS: 96365; 96366; J2930; J7050

== ENCOUNTER 2023-08-29 06:00 | Outpatient (RCR) | payer MEDICARE, BC, SELFPAY | END 2023-09-06 23:59 | disposition home or self-care (01) | LOC: TPT 06:00 | PROVIDERS: PCP Internal Medicine; Visit Provider Internal Medicine | DX: M51.17 Intervertebral disc disorders with radiculopathy, lumbosacral region (principal) | CPT/HCPCS: 97162 ==

== ENCOUNTER 2023-09-07 06:00 | Outpatient (RCR) | payer MEDICARE, BC, SELFPAY | END 2023-10-07 23:59 | disposition home or self-care (01) | LOC: TPT 06:00 | PROVIDERS: PCP Internal Medicine; Visit Provider Internal Medicine | DX: M51.17 Intervertebral disc disorders with radiculopathy, lumbosacral region (principal) | CPT/HCPCS: 97110 ==

== ENCOUNTER 2023-09-21 15:53 | Outpatient (CLI) | payer MEDICARE, BC, SELFPAY ==
--- NOTE | 2023-09-21 15:55 | MR_ITS ---
WS: [id number] MRI LUMBAR SPINE NONCONTRAST HISTORY: Chronic low back and RIGHT hip pain. Prior surgery. COMPARISON: 09/23/2021 TECHNIQUE: Sagittal and axial multisequence imaging is submitted. Mild encroachment on the ventral cervical canal at C3-4. There is an additional small central disc pr otrusion at C6-7. Straightening and slight reversal of the normal lumbar lordosis with marked LEFT curvature of the lum bar spine. Asymmetric disc space narrowing. L3 retrolisthesis by 6.7 mm. Benign hemangioma at L2. The spaces are mildly narrowed and desiccated throughout. Conus terminates normally at L1-2 disc level. L1-L2: Progression of a moderate broad-based RIGHT paracentral disc protrusion deforming the RIGHT la teral thecal sac. Mild osteophytic ridging. Mild central and bilateral subarticular recess stenosis. L2-L3: Diffuse annular disc bulging has mildly progressed since the prior study with progressive effa cement of CSF and thecal sac. Mild central and bilateral subarticular recess encroachment. Mild bilat eral foraminal stenosis. L3-L4: Retrolisthesis of L3 and disc bulging with osteophytosis. Asymmetric disc bulging to the RIGHT . Broad-based protrusion beginning along the RIGHT paracentral location and extending through the for amen and extraforaminal. Progression of central and subarticular recess and foraminal stenosis. There is now significant encroachment upon the RIGHT subarticular recess and contact on the traversing RIG HT L4 nerve root. Severe RIGHT foraminal stenosis and mild central stenosis. L4-L5: Mild annular disc bulging with facet and ligamentum flavum arthritis. Mild progression of mild central, bilateral subarticular recess and foraminal stenosis. L5-S1: Mild annular disc bulging and mild facet arthritis. Mild encroachment upon the subarticular re cesses. Mild LEFT foraminal narrowing. Perineural cysts sacral foramina. MR/MR lumbar spine wo con* [id number] IMPRESSION: 1. Mild progression of the marked levoscoliosis lumbar spine with asymmetric d isc space narrowing. 2. L1-2: Progression of the moderate size broad-based RIGHT paracentral disc p rotrusion with effacement of ventral CSF. Moderate central and bilateral subart icular recess stenosis. 3. L2-3: Progression of mild central and bilateral subarticular recess and for aminal stenosis. 4. L3-4: Progression of the large broad-based disc protrusion beginning RIGHT paracentral extending extraforaminal on the RIGHT. Progression of central, bila teral subarticular recess and foraminal stenosis. Most significant encroachment upon the RIGHT subarticular recess and RIGHT L4 nerve root. Severe RIGHT sarah inal stenosis. 5. L4-5: Mild progression of mild central, bilateral subarticular recess and f oraminal stenosis. 6. L5-S1: Mild LEFT foraminal narrowing.
== END 2023-09-21 15:54 | disposition home or self-care (01) ==
LOC: RAD 15:54
PROVIDERS: PCP Internal Medicine; Visit Provider Internal Medicine
DX: M51.26 Other intervertebral disc displacement, lumbar region (principal); M51.17 Intervertebral disc disorders with radiculopathy, lumbosacral region; M99.63 Osseous and subluxation stenosis of intervertebral foramina of lumbar region; M25.78 Osteophyte, vertebrae; M43.16 Spondylolisthesis, lumbar region
CPT/HCPCS: 72148

== ENCOUNTER → 2023-10-04 10:44 | Outpatient (BNVA) | payer MEDICARE, SELFPAY | PROVIDERS: PCP Internal Medicine; Visit Provider Anesthesiology Pain Medicine | DX: M48.062 Spinal stenosis, lumbar region with neurogenic claudication (principal); G89.29 Other chronic pain; M47.816 Spondylosis without myelopathy or radiculopathy, lumbar region; M51.36 Other intervertebral disc degeneration, lumbar region; M47.814 Spondylosis without myelopathy or radiculopathy, thoracic region; M41.9 Scoliosis, unspecified; G35 Multiple sclerosis | CPT/HCPCS: 72100; 99214; 99215 ==

== ENCOUNTER 2023-10-08 06:00 | Outpatient (RCR) | payer MEDICARE, BC, SELFPAY | END 2023-10-28 23:59 | disposition home or self-care (01) | LOC: TPT 06:00 | PROVIDERS: PCP Internal Medicine; Visit Provider Internal Medicine | DX: M51.17 Intervertebral disc disorders with radiculopathy, lumbosacral region (principal) | CPT/HCPCS: 97110 ==

== ENCOUNTER 2023-12-28 08:23 | Outpatient (CLI) | payer MEDICARE, BC, SELFPAY ==
--- NOTE | 2023-12-28 08:35 | MM_ITS ---
WS: [id number] SCREENING DIGITAL BREAST TOMOSYNTHESIS MAMMOGRAM WITH CAD HISTORY: SCREENING COMPARISON: 10/21/2021, 11/18/2022 and 01/24/2019 Bilateral CC and MLO with tomosynthesis and synthetic mammography submitted. Computer aided detection analyzed. Breast composition: The breasts are heterogeneously dense, which may obscure small masses. No interva l change in the RIGHT breast. Long-term stability 10 mm ovoid nodule in the medial breast and a benig n calcification. There is several asymmetries in the LEFT breast which need to be further evaluated. High density mass measuring 7 x 5 mm in the posterior medial LEFT breast near the nipple line. This i s probably near the 9-10 o'clock axis. There is an additional asymmetry on the CC projection measurin g 5 x 6 mm seen only on the CC projection. On the lateral projection there is a 5.2 mm mass in the po sterior retromammary fat which has been present on the prior studies but slightly increased in size. This is probably a lymph node but should be further evaluated. MM/[place] [id number] IMPRESSION: BI-RADS: 0-Incomplete: Need additional imaging evaluation FOLLOW UP: Need Additional Imaging LEFT breast: Spot compression views (CC and MLO). True ML. Ultrasound to follow if abnormality persists. There are several areas in the LEFT breast which need to be further evaluated with spot compression ultrasound.
== END 2023-12-28 08:24 | disposition home or self-care (01) ==
PROVIDERS: PCP Internal Medicine; Visit Provider Internal Medicine
DX: R92.323 Mammographic fibroglandular density, bilateral breasts (principal); N63.10 Unspecified lump in the right breast, unspecified quadrant; N63.22 Unspecified lump in the left breast, upper inner quadrant; R92.1 Mammographic calcification found on diagnostic imaging of breast
CPT/HCPCS: 77063; 77067

== ENCOUNTER 2024-02-27 10:45 | Outpatient (CLI) | payer MEDICARE, BC, SELFPAY ==
--- NOTE | 2024-02-27 10:48 | MM_ITS ---
WS: [id number] ADDITIONAL VIEWS LEFT MAMMOGRAM with tomosynthesis. LEFT BREAST ULTRASOUND HISTORY: ABNORMAL MAMMORAM LEFT BREAST COMPARISON: 12/28/2023, 11/18/2022, 10/21/2021 LEFT MAMMOGRAM: Spot compression views and true ML with tomosynthesis and sympathetic mammography. High density mass persists in the LEFT breast just lateral to the nipple measuring 12 x 11 x 13 mm. T here is an additional smaller mass in the retroglandular soft tissue at the same level of the high de nsity mass. The asymmetry in the lateral LEFT breast persists also. These areas will be evaluated by ultrasound. LEFT BREAST ULTRASOUND 2-D and color Doppler imaging submitted. 11:00, 2 cm from the nipple slightly lobulated mass measures 1.4 x 0.9 x 1.0 cm. This corresponds to the high density mass seen on mammography. 11:00 against the chest wall there is a cyst measuring 0.6 x 0.6 x 0.8 cm. This is a simple cyst. Additional small complex cyst versus lymph node 3:00, 5 cm from the nipple measures 0.8 x 0.7 x 0.5 c m. This corresponds to the mammographic abnormality also. MM/MM diag LT tomosynthesis [id number] IMPRESSION: BI-RADS: 2- Benign FOLLOW UP: 1 Year Follow-up
== END 2024-02-27 10:46 | disposition home or self-care (01) ==
LOC: RAD 10:47
PROVIDERS: PCP Internal Medicine; Visit Provider Internal Medicine
DX: R92.8 Other abnormal and inconclusive findings on diagnostic imaging of breast (principal); N63.42 Unspecified lump in left breast, subareolar; L02.213 Cutaneous abscess of chest wall
CPT/HCPCS: 76642; 77061; G0279

== ENCOUNTER → 2024-06-19 08:03 | Outpatient (BNVA) | payer MEDICARE, BC, SELFPAY | PROVIDERS: PCP Internal Medicine; Visit Provider Orthopaedic Surgery | DX: M47.816 Spondylosis without myelopathy or radiculopathy, lumbar region (principal); M54.9 Dorsalgia, unspecified; G89.29 Other chronic pain; M48.062 Spinal stenosis, lumbar region with neurogenic claudication | CPT/HCPCS: 72110; 99213 ==

== ENCOUNTER 2024-07-03 08:28 | Outpatient (CLI) | payer MEDICARE, BC, SELFPAY ==
--- NOTE | 2024-07-03 08:45 | MR_ITS ---
WS: [id number] MRI LUMBAR SPINE NONCONTRAST HISTORY: back pain COMPARISON: 09/21/2023 TECHNIQUE: Sagittal and axial multisequence imaging is submitted. C6-7 Central disc protrusion contacts the ventral cervical cord. Marked degenerative levoscoliosis of the lumbar spine with asymmetric disc space narrowing. No acute fractures or marrow edema in the vertebral bodies. Disc spaces are narrowed and desiccated, most significant degenerative disease at L3- 4. L3 retrolisthesis by 5 mm. Conus terminates normally at L1-2 disc level. T12-L1: Very shallow central disc protrusion. No stenosis. L1-L2: Mild diffuse annular disc bulging with a moderate RIGHT paracentral disc protrusion displacing and deforming the thecal sac and contact on the traversing RIGHT L2 nerve root. Disc protrusion has slightly increased in size since the prior study. Central, subarticular recess and mild foraminal stenosis. L2-L3: Diffuse annular disc bulging with deformity of the thecal sac due to the scoliosis. Mild central, bilateral subarticular recess and foraminal stenosis. L3-L4: Marked asymmetric disc bulging to the RIGHT. Broad-based RIGHT paracentral and foraminal disc protrusion contacts the RIGHT lateral thecal sac. Osteophytic ridging. Disc contact on the RIGHT lateral thecal sac and traversing L3 nerve root with advanced RIGHT foraminal stenosis. RIGHT hemilaminectomy defect. L4-L5: Mild annular disc bulging with ligamentum flavum and facet arthritis. Mild central, bilateral subarticular recess and foraminal stenosis. Slightly greater stenosis RIGHT foramen. L5-S1: Mild annular disc bulging with facet arthritis. No significant stenosis. Minimal disc encroachment upon the subarticular recesses and foramina. Paravertebral soft tissues are negative. Neural cysts are noted in the sacrum. MR/MR lumbar spine wo con* [id number] IMPRESSION: 1. Levoscoliosis with asymmetric disc space narrowing. No acute fracture. 2. L3-4: Broad-based RIGHT paracentral and foraminal disc protrusion similar t o the prior exam. Contact on the RIGHT lateral thecal sac, traversing L3 nerve roots with RIGHT foraminal stenosis. RIGHT hemilaminectomy defect. 3. L4-5: Mild central, bilateral subarticular recess and foraminal stenosis. 4. L2-3: Mild central, bilateral subarticular recess and foraminal stenosis. 5. L1-2: Moderate RIGHT paracentral disc protrusion deform the thecal sac and contacting the traversing L3 nerve root has slightly progressed in size. Mild c entral, subarticular recess and foraminal stenosis.
== END 2024-07-03 08:29 | disposition home or self-care (01) ==
PROVIDERS: PCP Internal Medicine; Visit Provider Orthopaedic Surgery
DX: M51.26 Other intervertebral disc displacement, lumbar region (principal); M41.86 Other forms of scoliosis, lumbar region; R93.7 Abnormal findings on diagnostic imaging of other parts of musculoskeletal system; M48.061 Spinal stenosis, lumbar region without neurogenic claudication; M96.89 Other intraoperative and postprocedural complications and disorders of the musculoskeletal system; M50.223 Other cervical disc displacement at C6-C7 level; M51.369 Other intervertebral disc degeneration, lumbar region without mention of lumbar back pain or lower extremity pain; M43.16 Spondylolisthesis, lumbar region; M25.78 Osteophyte, vertebrae; M47.896 Other spondylosis, lumbar region; M51.379 Other intervertebral disc degeneration, lumbosacral region without mention of lumbar back pain or lower extremity pain; M47.897 Other spondylosis, lumbosacral region; R93.89 Abnormal findings on diagnostic imaging of other specified body structures
CPT/HCPCS: 72148; 99214

== ENCOUNTER 2024-11-15 15:16 | Outpatient (CLI) | payer MEDICARE, BC, SELFPAY ==
--- NOTE | 2024-11-15 15:22 | XR_ITS ---
WS: [id number] SCREENING DEXA SCAN [employer] CLINICAL INFORMATION: ASYMPTOMATIC POST MENOPAUSAL COMPARISON: None. FINDINGS: There is stable lumbar scoliosis. The L1-L4 bone mineral density measures 1.049 g/cm2. This corresponds to a T score score of -1.1 and Z score of 0.1. Left femoral neck bone mineral density measures 0.900 g/cm2. This corresponds to a T score of -0.9 and Z score of 0.2. Right femoral neck bone mineral density measures 0.898 g/cm2. This corresponds to a T score -0.9of and Z score of 0.2. Mean femoral neck bone mineral density measures 0.899 g/cm2. This corresponds to a T score of -0.9 and Z score of 0.2. XR/XR DEXA axial skeleton* [id number] IMPRESSION: Osteopenia lumbar spine. Normal bone mineralization of femoral necks. Patient's FRAX calculated 10 year probability for major osteoporotic fracture i s 15.9% and osteoporotic hip fracture is 2.7%.
== END 2024-11-15 15:17 | disposition home or self-care (01) ==
PROVIDERS: PCP Internal Medicine; Visit Provider Internal Medicine
DX: Z13.820 Encounter for screening for osteoporosis (principal); M85.88 Other specified disorders of bone density and structure, other site; Z78.0 Asymptomatic menopausal state
CPT/HCPCS: 77080

== ENCOUNTER 2025-03-18 08:02 | Outpatient (CLI) | payer MEDICARE, BC, SELFPAY ==
--- NOTE | 2025-03-18 08:08 | MM_ITS ---
WS: [id number] BILATERAL SCREENING DIGITAL TOMOSYNTHESIS MAMMOGRAM WITH CAD HISTORY: SCREENING COMPARISON: 02/27/2024, 12/28/2023, 11/18/2022, 10/21/2021 Bilateral CC and MLO views with tomosynthesis and synthetic mammography submitted. Computer aided detection analyzed. Breast composition: The breasts are heterogeneously dense, which may obscure small masses. No suspicious masses, microcalcifications or architectural distortion. Previously described mass in the central LEFT breast has resolved. Small residual mass persists measuring 5 x 6 x 6 mm. MM/MM scr tomosynthesis [id number] IMPRESSION: BI-RADS: 2 - Benign FOLLOW UP: 1 Year Follow-up
== END 2025-03-18 08:03 | disposition home or self-care (01) ==
PROVIDERS: PCP Internal Medicine; Visit Provider Internal Medicine
DX: Z12.31 Encounter for screening mammogram for malignant neoplasm of breast (principal); R92.333 Mammographic heterogeneous density, bilateral breasts; N64.89 Other specified disorders of breast
CPT/HCPCS: 77063; 77067